=== PATIENT | female | born 1930 | race Caucasian/White ===

== ENCOUNTER 2016-09-12 19:37 | Emergency (ER) | payer MEDICARE, OTHER ==
[~2016-09-12] VITALS: Ht 162.6 cm; Wt 88.3 kg
[~2016-09-12 19:37] MED LIST: ACET-2723 PO; ANAS1TAB PO; ATEN-36 PO; CETI-115 PO; CITA10TA7 PO; CLIN300C86 PO; COLE1TAB2 PO; GABA-215 PO; INSU100I21 SQ; INSU100I3 SQ; LISI10TA7 PO; MECL-95 PO; SIMV40TA5 PO
[2016-09-12 19:40] VITALS: Ht 162.6 cm; Wt 88.3 kg
--- OUTSIDE RECORDS SUMMARY | 2016-09-12 19:41 | XMS REPORT | Continuity of Care Document ---
Author Author [facility] Organization [facility] Address Unknown Phone Unavailable Support Name Relationship Address Phone AQUILINO FUENTES MD Caregiver [address] [place] [address] [address] [place] [address] [phone] MARILYN ALAN MD Caregiver [address] [place] [address] KOKO DIAMOND Next Of Kin [address] [place], [place] [id number] Insurance Providers Payer Name Policy Number Subscriber Name Relationship Medicare [id number] Lilia Farrell 17 Self [place] [id number] Lilia Farrell 17 Self Advance Directives Directive Response Recorded Date/Time Dr Lyons Resuscitation Status Do Not Resuscitate 06/29/14 2:23pm Resuscitation Documents on File No 06/29/14 2:12pm Chief Complaint and Reason for Visit Chief Complaint CVA Reason for Visit Controlled diabetes mellitus Problems Medical Problems Problem Onset Date Status SIRS Unknown Active UTI Unknown Active DEHYDRATION Unknown Active Acute Renal Failure secondary to Dehydration Unknown Active Contusion of left knee Unknown Active Contusion of left knee Unknown Active Vertigo Unknown Active Vertigo Unknown Active Controlled diabetes mellitus Unknown Active Medications Medication Dose Route Sig Days/Qty Instructions Order Date Discontinued Date Status Aspirin 1 Tab PO DAILY 10/23/08 Active Atenolol 1 Tab PO TWICE A DAY 10/23/08 05/27/11 Discontinued Insulin Glargine 22 U SQ BEDTIME 10/23/08 Active Lisinopril 5 Mg PO BEDTIME 10/23/08 Active Hydrocodone Bit/Acetaminophen 1 Tab PO Q3H PRN 10/23/08 Active Lysine 1,000 Mg PO DAILY 10/23/08 Active Insulin Aspart 5 U SQ BEFORE EACH MEAL 10/23/08 Active Clopidogrel Bisulfate 1 Tab PO DAILY 10/23/08 02/19/10 Discontinued Omeprazole 1 Cap PO NEEDED 10/23/08 02/17/13 Discontinued Simvastatin 1 Tab PO BEDTIME 10/23/08 02/19/10 Discontinued Atenolol 25 Mg PO TWICE A DAY 01/24/13 Active Simvastatin 80 Mg PO BEDTIME 01/24/13 Active Gabapentin 2 Tab PO BEDTIME 01/24/13 Active Ascorbic Acid 1,000 Mg PO DAILY 01/24/13 Active Glucosa Berg 2KCL/Chondroitin Berg 1 Cap PO TWICE A DAY 01/24/13 Active [Cetericine] 10 Mg BEDTIME 01/24/13 02/17/13 Discontinued Nitroglycerin 0.4 Mg SL NEEDED 03/31/13 Active Loratadine 10 Mg PO BEDTIME 03/31/13 Active Cilostazol 100 Mg PO TWICE A DAY 03/31/13 Active [anastrozole] 1 Mg PO DAILY 01/16/14 Active Social History Social History Problem Response Recorded Date/Time Chewing Tobacco Status No 06/06/2013 1:38pm Hx Substance Use No 05/30/2014 1:23pm Hx Alcohol Use No 05/30/2014 1:23pm Has the pt used tobacco in the last 12 months No 06/29/2014 2:04pm Tobacco Usage none 01/17/2014 6:40am Query Response Start Date Stop Date Smoking Status Never smoker Hospital Discharge Instructions Instructions: Care Instructions: Reason for Hospitalization: induction of labor I was in the hospital because (patient own words): "i'm going to have a baby" Follow Up Appointments: Follow-up with Dr. Perea on August 29, 2014 at 10:30am. Condition at time of discharge: Good Jul [address] Ponce at [facility] office Patient Instructions: see discharge instructions Condition at time of discharge: Good Notify Physician If: any further stroke symptoms Condition at time of discharge: Good 7.2 Congenital Heart Disease Screening Result: Pass Plan of Care Discharge Date 07/21/14 10:15am Disposition 03 TO [facility] NOT [facility] ([facility]) Prescriptions See Medications Section Functional Status Query Response Date Recorded Physical Hygiene Self May 30, 2014 1:23pm Physical Hygiene Self May 30, 2014 1:23pm Allergies, Adverse Reactions, Alerts Allergen Type Severity Reaction Status Last Updated No Known Drug Allergies Allergy Unknown Active 05/30/14 Immunizations Name Given Type Hx Influenza Vaccination Y 04/04 Historical Hx Pneumococcal Vaccination Y WITHIN THE LAST 5 YEARS Historical Hx Tetanus, Diptheria, Pertussis No Historical Hx Influenza Vaccination Y 04/04 Historical Hx Tetanus Diptheria No Historical Hx Tetanus, Diptheria, Pertussis No Historical Hx Tetanus Toxoid Vaccination No Historical Vital Signs Acute Vital Signs Vital Response Date/Time Temperature (Fahrenheit) 97.0 deg F (96.8 - 99.1) Temperature (Calculated Celsius) 36.11177 degrees C (36.0 - 37.3) Temperature Source Temporal Pulse Rate (adult) 76 bpm (60 - 100) Respiratory Rate 16 breaths/min (10 - 20) Height 5 ft 5 in Weight 161 lb Body Mass Index 26.0 kg/m^2 Results Test Source Date Result Interp. Ref. Range Comments Alanine Aminotransferase (ALT/SGPT) July 21, 2014 4:55am 29 U/L N 9- 52 Albumin July 21, 2014 4:55am 3.3 G/DL L 3.5-5.0 Albumin/Globulin Ratio July 21, 2014 4:55am 1.1 RATIO N 1.1-2.2 Alkaline Phosphatase July 21, 2014 4:55am 58 U/L N 38-126 Anion Gap July 21, 2014 4:55am 9 MEQ/L N 5-15 Aspartate Amino Transf (AST/SGOT) July 21, 2014 4:55am 24 U/L N 14- 36 BUN/Creatinine Ratio July 21, 2014 4:55am 23 RATIO N 6-26 Band Neutrophils # June 30, 2014 7:13am 0.3 T/MM3 - OK TO DRAW AT 0700 WITH OTHER IRU PER RN Band Neutrophils % June 30, 2014 7:13am 2.0 % N 0-6 OK TO DRAW AT 0700 WITH OTHER IRU PER RN Basophils # (Auto) July 21, 2014 4:55am 0.0 T/MM3 N 0-0.2 Basophils (%) (Auto) July 21, 2014 4:55am 0.3 % N 0-2 Blood Urea Nitrogen July 21, 2014 4:55am 16.0 MG/DL N 7-17 Calcium Level July 21, 2014 4:55am 10.3 MG/DL H 8.4-10.2 Calculated Osmolality July 21, 2014 4:55am 269 MOSM/KG N 261-280 Carbon Dioxide Level July 21, 2014 4:55am 29 MEQ/L N 22-30 Chemistry Specimen Hemolysis July 21, 2014 4:55am < 15 0-25 0-25: No Hemolysis.26-70: Slight Hemolysis - can falsely elevate K and Urine Protein. 71-285: Moderate Hemolysis - can falsely elevate K, Troponin I, CA 19-9, PTH, CSF GLucose, and Urine Protein, and can falsely decrease Phenytoin. 286-999: Gross Hemolysis - can falsely elevate K, Troponin I, CA 19-9, PTH, CSF Glucose, and Urine Protine, and can falsely decrease Phenytoin. Recommend specimen recollection. Chloride Level July 21, 2014 4:55am 102 MEQ/L N 98-107 Creatinine July 21, 2014 4:55am 0.7 MG/DL N 0.7-1.2 Eosinophils # (Auto) July 21, 2014 4:55am 0.1 T/MM3 N 0-0.5 Eosinophils # (Manual) June 30, 2014 7:13am 0.3 T/MM3 N 0-0.5 OK TO DRAW AT 0700 WITH OTHER IRU PER RN Eosinophils % (Manual) June 30, 2014 7:13am 2.0 % N 0-4 OK TO DRAW AT 0700 WITH OTHER IRU PER RN Eosinophils (%) (Auto) July 21, 2014 4:55am 1.5 % N 0-4 Globulin July 21, 2014 4:55am 3.0 G/DL N 2.4-3.6 Glomerular Filtration Rate Calc July 21, 2014 4:55am 80 - Glucometer July 21, 2014 10:06am 109 mg/dL N 65-110 Glucose Level July 21, 2014 4:55am 87 MG/DL N 65-110 Hematocrit July 21, 2014 4:55am 38.1 % N 36-46 Hemoglobin July 21, 2014 4:55am 11.9 GM/DL L 12-16 Hemoglobin A1c July 14, 2014 5:07am 7.8 % H 6-7 <6.0 NON-DIABETIC RANGE6.0-7.0 ADA THERAPEUTIC RANGE >7.0 ACTION SUGGESTED Icterus Index July 21, 2014 4:55am < 2 0-7 Immature Granulocyte # (Auto) July 21, 2014 4:55am 0.03 T/MM3 N 0.00- 0.03 Immature Granulocyte % (Auto) July 21, 2014 4:55am 0.3 % N 0.0-0.5 Lab Scanned Report September 20, 2013 8:40pm LAB TEST FORM REQUEST [id number] - Lactate Dehydrogenase July 07, 2014 5:04am 573 U/L N 313-618 Lymphocytes # (Auto) July 21, 2014 4:55am 3.2 T/MM3 N 1-4.8 Lymphocytes # (Manual) July 07, 2014 5:04am 1.7 T/MM3 N 1-4.8 Lymphocytes % (Manual) July 07, 2014 5:04am 12.0 % L 23-45 Lymphocytes (%) (Auto) July 21, 2014 4:55am 34.5 % N 23-45 Mean Corpuscular Hemoglobin July 21, 2014 4:55am 28.9 UUG N 26-34 Mean Corpuscular Hemoglobin Concent July 21, 2014 4:55am 31.2 GM/DL N 31-37 Mean Corpuscular Volume July 21, 2014 4:55am 92.5 UM3 N 80-100 Mean Platelet Volume July 21, 2014 4:55am 11.9 UM3 N 9.4-12.4 Monocytes # (Auto) July 21, 2014 4:55am 0.6 T/MM3 N 0-0.8 Monocytes # (Manual) July 07, 2014 5:04am 0.6 T/MM3 N 0-0.8 Monocytes % (Manual) July 07, 2014 5:04am 4.0 % N 0-9.0 Monocytes (%) (Auto) July 21, 2014 4:55am 6.3 % N 0-9.0 TI-Mwo-K-Type Natriuretic Peptide February 19, 2013 4:45am 1360 PG/ML H 0- 175 Rule in cut points: <50 years old=450; 50-75 years old=900; >75 years old=1800; When utilizing ProBNP rule-in cut points, adjustment for impaired renal function is typically not required. Neutrophils # (Auto) July 21, 2014 4:55am 5.3 T/MM3 N 1.8-7.7 Neutrophils # (Manual) July 07, 2014 5:04am 11.8 T/MM3 H 1.8-7.7 Neutrophils % (Manual) July 07, 2014 5:04am 84.0 % H 33-66 Neutrophils (%) (Auto) July 21, 2014 4:55am 57.1 % N 33-66 Platelet Count July 21, 2014 4:55am 125 T/MM3 L 130-400 Potassium Level July 21, 2014 4:55am 4.2 MEQ/L N 3.6-5 Procalcitonin February 17, 2013 9:00pm < 0.05 NG/ML - PCT </=0.5 ng/mL - sepsis not likely;PCT >0.5 and </=2 ng/mL - sepsis possible; PCT >2 ng/mL - sepsis likely; PCT >/=10 ng/mL - systemic inflammatory response - sepsis or septic shock highly indicated. Prothromb Time International Ratio June 07, 2013 10:34am 0.96 N 0.86 -1.10 THERAPUTIC RANGE=2.00-3.00 FOR ANTI-THROMBOSIS THERAPUTIC RANGE=2.50- 3.50 FOR IMPLANTED VALVE RDW Standard Deviation July 21, 2014 4:55am 45.7 FL N 36.9-50.2 Red Blood Count July 21, 2014 4:55am 4.12 M/MM3 N 4.00-5.20 Sodium Level July 21, 2014 4:55am 140 MEQ/L N 134-144 Total Bilirubin July 21, 2014 4:55am 0.40 MG/DL N 0.20-1.30 Total Protein July 21, 2014 4:55am 6.3 G/DL N 6.3-8.2 Troponin I May 30, 2014 1:51pm < 0.012 ng/ml 0-0.12 Turbidity July 21, 2014 4:55am < 20 0-20 Urinalysis Comment May 30, 2014 2:13pm Microscopic not ind. - Has specimen been collected/obtained? Y Urine Bacteria June 30, 2014 8:30pm 2+ H - Has specimen been collected/obtained? Y Urine Bilirubin June 30, 2014 8:30pm Negative - Has specimen been collected/obtained? Y Urine Blood June 30, 2014 8:30pm Trace-intact H - Has specimen been collected/obtained? Y Urine Collection Type June 30, 2014 8:30pm Straight cath - Has specimen been collected/obtained? Y Urine Color June 30, 2014 8:30pm Yellow - Has specimen been collected/obtained? Y Urine Culture Indicated June 30, 2014 8:30pm Cult reflexed &setup - Has specimen been collected/obtained? Y Urine Glucose (UA) June 30, 2014 8:30pm 1+ H - Has specimen been collected/obtained? Y Urine Ketones June 30, 2014 8:30pm Negative - Has specimen been collected/obtained? Y Urine Leukocyte Esterase June 30, 2014 8:30pm 1+ H - Has specimen been collected/obtained? Y Urine Nitrite June 30, 2014 8:30pm Negative - Has specimen been collected/obtained? Y Urine Protein June 30, 2014 8:30pm Negative - Has specimen been collected/obtained? Y Urine RBC June 30, 2014 8:30pm 0-1 /HPF - Has specimen been collected/obtained? Y Urine Renal Epithelial Cells February 17, 2013 8:35pm 3-5 /HPF - Has specimen been collected/obtained? Y Urine Specific [place] June 30, 2014 8:30pm 1.010 L - Has specimen been collected/obtained? Y Urine Squamous Epithelial Cells September 20, 2013 12:00am 5-10 - Urine Turbidity June 30, 2014 8:30pm Clear - Has specimen been collected/obtained? Y Urine Urobilinogen June 30, 2014 8:30pm 0.2 EU/DL - Has specimen been collected/obtained? Y Urine WBC June 30, 2014 8:30pm 10-20 /HPF H - Has specimen been collected/obtained? Y Urine WBC Clumps October 23, 2008 12:02am Few - Has specimen been collected/obtained? Y Urine pH June 30, 2014 8:30pm 5.0 - Has specimen been collected/ obtained? Y Venous Blood Lactate February 17, 2013 9:00pm 1.0 MMOL/L N 0.6-2.2 White Blood Count July 21, 2014 4:55am 9.3 T/MM3 N 4.5-11.0 Blood Culture Blood February 17, 2013 8:55pm NO GROWTH AFTER 5 DAYS Urine Culture Urine, Straight Cath June 30, 2014 8:58pm Name: LILIA FARRELL Unit #: [id number] : 1930 Sex: F Loc / Svc: [facility] DOS: Signed Report #: [id number] DIAGNOSTIC IMAGING REPORT TYPE OF EXAM: CHEST, PA & LATERAL Dictated By: MONTIEL, FANNY D MD INDICATION: ITS.REASON: cough CHEST 2-VIEWS UPRIGHT (PA & LAT): COMPARISON: June 30, 2014 FINDINGS: The lungs are clear without evidence of focal abnormal airspace opacity. There is no pleural effusion or pneumothorax. Poststernotomy changes are present. The heart size, mediastinal contours and pulmonary vascularity are within normal limits. IMPRESSION: Stable chest without acute cardiopulmonary disease. . Procedures Procedure Status Date Provider(s) ROUTINE VENIPUNCTURE completed 05/30/14 CT HEAD/BRAIN W/O DYE completed 05/30/14 X-RAY EXAM OF PELVIS completed 05/30/14 X-RAY EXAM OF HUMERUS completed 05/30/14 X-RAY EXAM OF HIP completed 05/30/14 CT LOWER EXTREMITY W/O DYE completed 05/30/14 COMPREHEN METABOLIC PANEL completed 05/30/14 URINALYSIS AUTO W/O SCOPE completed 05/30/14 ASSAY OF TROPONIN QUANT completed 05/30/14 COMPLETE CBC W/AUTO DIFF WBC completed 05/30/14 URINE CULTURE/COLONY COUNT completed 05/30/14 ELECTROCARDIOGRAM TRACING completed 05/30/14 THER/PROPH/DIAG INJ IV PUSH completed 05/30/14 EMERGENCY DEPT VISIT completed 05/30/14 [id number] ITEM OR SERVICE completed 05/30/14 [id number]"INJECTION, ONDANSETRON HYDROCHLORIDE, PER 1 MG" completed 05/30/14 Encounters Encounter Location Date/Time Discharged Inpatient [facility] 06/29/14 12:20pm Departed Emergency Room [facility] 05/30/14 1:13pm Recent Diagnosis Controlled diabetes mellitus
--- OUTSIDE RECORDS SUMMARY | 2016-09-12 19:41 | XMS REPORT | Referral Summary ---
Author Organization Unknown Address Unknown Phone Unavailable Care Team Providers Care Fish Housekeeper Name Role Phone Onel Jaimes Primary Care Physician [phone] Encounter VC Date(s): 08/11/14 - 08/11/14 [address] [facility]ila, [place], [address] [place], [place] [address] Discharge Diagnosis: Attention to gastrostomy tube Discharge Disposition: Home or Self Care Attending Physician: Geo Mcmillan MD Admitting Physician: Geo Mcmillan MD Referring Physician: Anshu Jaimes MD Vital Signs Most recent to 1 oldest [Reference Range]: Temperature Tympanic 36.4 degC [36.6-38.1 degC] *LOW* (08/11/14 1:56 PM) Peripheral Pulse 66 bpm Rate [60-100 bpm] (08/11/14 1:56 PM) Blood Pressure 140/74 mmHg [90-140/60-90 mmHg] (08/11/14 1:56 PM) Problem List Condition Effective Dates Status Health Status Informant Stroke(Confirmed) Active Constipation(Confirm Active ed) Diabetes(Confirmed) Active Hypercholesteremia(C Active onfirmed) Hypertension(Confirm Active ed) Allergies, Adverse Reactions, Alerts No data available for this section Medications anastrozole 1 mg oral tablet 1 tabs, Oral, Daily, # 30 tabs, 0 Refill(s) Start Date: 08/10/14 Status: Ordered aspirin 325 mg, 0 Refill(s) Start Date: 08/10/14 Status: Ordered atenolol 25 mg oral tablet 1 tabs, Oral, Daily, # 30 tabs, 0 Refill(s) Start Date: 08/10/14 Status: Ordered CeleXA 10 mg oral tablet 1 tabs, Oral, Daily, # 30 tabs, 0 Refill(s) Start Date: 08/11/14 Status: Ordered Chondroitin-Glucosamine 1 caps, Oral, BID, 0 Refill(s) Start Date: 08/10/14 Status: Ordered cilostazol 100 mg oral tablet 1 tabs, Oral, BID, # 60 tabs, 0 Refill(s) Start Date: 08/10/14 Status: Ordered gabapentin 300 mg oral capsule 2 caps, Oral, Daily, 0 Refill(s) Start Date: 08/10/14 Status: Ordered Lantus 100 units/mL subcutaneous solution 22 units, SubCutaneous, Bedtime (once a day), # 10 mL, 0 Refill(s) Start Date: 08/10/14 Status: Ordered lisinopril 5 mg oral tablet 1 tabs, Oral, Daily, # 30 tabs, 0 Refill(s) Start Date: 08/10/14 Status: Ordered loratadine 10 mg oral tablet 1 tabs, Oral, Daily, # 30 tabs, 0 Refill(s) Start Date: 08/10/14 Status: Ordered lysine 500 mg oral tablet 2 tabs, Oral, Daily, # 100 tabs, 0 Refill(s) Start Date: 08/10/14 Status: Ordered nitroglycerin 0.4 mg sublingual tablet 1 tabs, SubLingual, q5min, as needed for chest pain, # 100 tabs, 0 Refill(s) Start Date: 08/10/14 Status: Ordered NovoLOG 100 units/mL subcutaneous solution 5 units, SubCutaneous, Once a Day (before meals), 0 Refill(s) Start Date: 08/10/14 Status: Ordered simvastatin 80 mg oral tablet 1 tabs, Oral, Bedtime (once a day), # 30 tabs, 0 Refill(s) Start Date: 08/10/14 Status: Ordered Vitamin C 1,000 mg, Daily, 0 Refill(s) Start Date: 08/10/14 Status: Ordered Vitamin C 1,000 mg, Daily, 0 Refill(s) Start Date: 08/11/14 Status: Ordered Zofran 4 mg oral tablet 1 tabs, Oral, Once, # 10 tabs, 0 Refill(s) Start Date: 08/11/14 Status: Ordered Results No data available for this section Immunizations No data available for this section Procedures Procedure Date Related Diagnosis Body Site Infection of percutaneous endoscopic 06/27/14 gastrostomy (PEG) site1 1in [place] Social History No data available for this section Assessment and Plan Extracted from: Title: Ambulatory Patient Education Author: Geo Mcmillan MD Date: Family Medicine Gastrostomy Tube, Adult A gastrostomy tube is a tube that is placed into the stomach. It is also called a "G-tube." This tube is used for: Feeding. Giving medication. CLEANING THE G-TUBE SITE Wash your hands with soap and water. Remove the old dressing (if any). Some styles of G-tubes may need a dressing inserted between the skin and the G-tube. Other types of G-tubes do not require a dressing. Ask your caregiver if a dressing is needed. Check the area where the tube enters the skin (insertion site ) for redness , swelling, or pus-like (purulent ) drainage. A small amount of clear or capellan liquid drainage is normal. Check to make sure scar tissue (skin) is not growing around the insertion site. This could have a raised, bumpy appearance. A cotton swab can be used to clean the skin around the tube: When the G-tube is first put in, a normal saline solution or water can be used to clean the skin. Mild soap and warm water can be used when the skin around the G-tube site has healed. Roll the cotton swab around the G-tube insertion site to remove any drainage or crusting at the insertion site. RESIDUALS Feeding tube residuals are the amount of liquids that are in the stomach at any given time. Residuals may be checked before giving feedings, medications, or as instructed by your caregiver. Ask your caregiver if there are instances when you would not start tube feedings depending on the amount or type of contents withdrawn from the stomach. Check residuals by attaching a syringe to the G-tube and pull back on the syringe plunger. Note the amount and return the residual back into the stomach. FLUSHING THE G-TUBE The G-tube should be periodically flushed with clean warm water to keep it from clogging. Flush the G-tube after feedings or medications. Draw up 30 mLs of warm water in a syringe. Connect the syringe to the G-tube and slowly push the water into the tube. Do not push feedings, medications, or flushes rapidly. Flush the G-tube gently and slowly. Only use syringes made for G-tubes to flush medications or feedings. Your caregiver may want the G-tube flushed more often or with more water. If this is the case, follow your caregiver's instructions. FEEDINGS Your caregiver will determine whether feedings are given as a bolus (a certain amount given at one time and at scheduled times) or whether feedings will be given continuously on a feeding pump. Formulas should be given at room temperature. If feedings are continuous, no more than 4 hours worth of feedings should be placed in the feeding bag. This helps prevent spoilage or accidental excess infusion. Cover and place unused formula in the refrigerator. If feedings are continuous, stop the feedings when medications or flushes are given. Be sure to restart the feedings. Feeding bags and syringes should be replaced as instructed by your caregiver. GIVING MEDICATION In general, it is best if all medications are in a liquid form for G-tube administration. Liquid medications are less likely to clog the G-tube. Mix the liquid medication with 30 mLs (or amount recommended by your caregiver) of warm water. Draw up the medication into the syringe. Attach the syringe to the G-tube and slowly push the mixture into the G- tube. After giving the medication, draw up 30 mLs of warm water in the syringe and slowly flush the G-tube. For pills or capsules, check with your caregiver first before crushing medications. Some pills are not effective if they are crushed. Some capsules are sustained release medications. If appropriate, crush the pill or capsule and mix with 30 mLs of warm water. Using the syringe, slowly push the medication through the tube, then flush the tube with another 30 mLs of tap water. G-TUBE PROBLEMS G-tube was pulled out. Cause: May have been pulled out accidentally. Solutions: Cover the opening with clean dressing and tape. Call your caregiver right away. The G-tube should be put in as soon as possible (within 4 hours) so the G-tube opening (tract ) does not close. The G-tube needs to be put in at a healthcare setting. An X-ray needs to be done to confirm placement before the G-tube can be used again. Redness, irritation, soreness, or foul odor around the gastrostomy site. Cause: May be caused by leakage or infection. Solutions: Call your caregiver right away. Large amount of leakage of fluid or mucus-like liquid present (a large amount means it soaks clothing). Cause: Many reasons could cause the G-tube to leak. Solutions: Call your caregiver to discuss the amount of leakage. Skin or scar tissue appears to be growing where tube enters skin. Cause: Tissue growth may develop around the insertion site if the G-tube is moved or pulled on excessively. Solutions: Secure tube with tape so that excess movement does not occur. Call your caregiver. G-tube is clogged. Cause: Thick formula or medication. Solutions: Try to slowly push warm water into the tube with a large syringe. Never try to push any object into the tube to unclog it. Do not force fluid into the G-tube. If you are unable to unclog the tube, call your caregiver right away. TIPS Head of Bed (HOB) position refers to the upright position of a person's upper body. When giving medications or a feeding bolus, keep the HOB up as told by your caregiver. Do this during the feeding and for 1 hour after the feeding or medication administration. If continuous feedings are being given, it is best to keep the HOB up as told by your caregiver. When ADLs (Activities of Daily Living) are performed and the HOB needs to be flat, be sure to turn the feeding pump off. Restart the feeding pump when the HOB is returned to the recommended height. Do not pull or put tension on the tube. To prevent fluid backflow, kink the G-tube before removing the cap or disconnecting a syringe. Check the G-tube length every day. Measure from the insertion site to the end of the G-tube. If the length is longer than previous measurements, the tube may be coming out. Call your caregiver if you notice increasing G-tube length. Oral care, such as brushing teeth, must be continued. You may need to remove excess air (vent ) from the G-tube. Your caregiver will tell you if this is needed. Always call your caregiver if you have questions or problems with the G- tube. SEEK IMMEDIATE MEDICAL CARE IF: You have severe abdominal pain, tenderness, or abdominal bloating ( distension ). You have nausea or vomiting. You are constipated or have problems moving your bowels. The G-tube insertion site is red, swollen, has a foul smell, or has yellow or brown drainage. You have difficulty breathing or shortness of breath. You have a fever. You have a large amount of feeding tube residuals. The G-tube is clogged and cannot be flushed. MAKE SURE YOU: Understand these instructions. Will watch your condition. Will get help right away if you are not doing well or get worse. Document Released: 08/17/2002 Document Revised: 08/30/2012 Document Reviewed: [facility] Patient Information 2014 [facility], [facility]. No follow up information was provided.
--- OUTSIDE RECORDS SUMMARY | 2016-09-12 19:41 | XMS REPORT | Continuity of Care Document ---
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6 g/dL 32.0-37.0 MEAN CELL VOLUME 91.0 fl 80.0-100.0 RED BLOOD CELL 4.34 m/cumm 4.00-6.00 RED CELL DISTRIBUTION WIDTH 12.7 % 11.0- 15.6 WHITE BLOOD CELL 9.3 k/cumm 5.0-10.0 HEMOGLOBIN 12.5 gm/dL 12.0-16.0 HEMATOCRIT 39.5 % 37.0-47.0 PLATELET COUNT 189 k/cumm 150-400 METABOLIC PANEL, BASIC - 09/07/12 13:40 POTASSIUM 4.1 mmol/L 3.5-5.3 EST GFR (MDRD) > 60 mL/min > 59 ANION GAP 8 mmol/L 5-15 GLUCOSE 204 mg/dL 70-99 CALCIUM 9.4 mg/dL 8.5-10.1 BLOOD UREA NITROGEN 13 mg/dL 7-20 CREATININE 0.9 mg/dL 0.6-1.0 SODIUM 139 mmol/L 135-148 CHLORIDE 107 mmol/L 98-110 CARBON DIOXIDE 24 mmol/L 21-32 GLUCOSE (POC) - 09/13/12 06:03 GLUCOSE (POC) 112 mg/dL 70-99 GLUCOSE (POC) - 09/13/12 15:10 GLUCOSE (POC) 188 mg/dL 70-99 CREATININE - 09/13/12 17:23 EST GFR (MDRD) > 60 mL/min > 59 CREATININE 0.9 mg/dL 0.6-1.0 GLUCOSE (POC) - 09/13/12 18:07 GLUCOSE (POC) 173 mg/dL 70-99 Encounters ACCT No. Visit Date/Time Discharge Status Pt. Type Provider Facility Loc./Unit Complaint [id number] 08/25/2012 10:48:00 2012 23:59:59 CLS Outpatient Rox BAXTER, Oniel Flaherty [facility]
--- OUTSIDE RECORDS SUMMARY | 2016-09-12 19:42 | XMS REPORT | Continuity of Care Document ---
Author Author [facility] Organization [facility] Address Unknown Phone Unavailable Support Name Relationship Address Phone AQUILINO FUENTES MD Caregiver [address] [place] [phone] ROBERT ALFREDO MD Caregiver [address] [facility] [phone] SCOUT [employer] Next Of Kin [address] [place], [place] [id number] Insurance Providers Payer Name Policy Number Subscriber Name Relationship Medicare [id number] Lilia Farrell 18 Self [place] [employer] [place] [id number] Lilia Farrell 17 Self Advance Directives Directive Response Recorded Date/Time Advanced Directives Type DPOA for Healthcare 01/16/14 3:51pm Problems Medical Problems Problem Onset Date Status SIRS Unknown Active UTI Unknown Active DEHYDRATION Unknown Active Acute Renal Failure secondary to Dehydration Unknown Active Contusion of left knee Unknown Active Medications Medication Dose Route Sig Days/Qty Instructions Order Date Discontinued Date Status Aspirin 1 Tab PO DAILY 10/23/08 Active Atenolol 1 Tab PO TWICE A DAY 10/23/08 05/27/11 Discontinued Insulin Glargine 22 U SQ BEDTIME 10/23/08 Active Lisinopril 5 Mg PO BEDTIME 10/23/08 Active Hydrocodone Bit/Acetaminophen 1 Tab PO Q3H PRN 10/23/08 Active Lysine 1,000 Mg PO TWICE A DAY 10/23/08 Active Insulin Aspart 5 U SQ BEFORE EACH MEAL 10/23/08 Active Clopidogrel Bisulfate 1 Tab PO DAILY 10/23/08 02/19/10 Discontinued Omeprazole 1 Cap PO NEEDED 10/23/08 02/17/13 Discontinued Simvastatin 1 Tab PO BEDTIME 10/23/08 02/19/10 Discontinued Atenolol 25 Mg PO THREE TIMES A DAY 01/24/13 Active Simvastatin 80 Mg PO BEDTIME 01/24/13 Active Gabapentin 300 Mg PO TWICE A DAY 01/24/13 Active Ascorbic Acid 1,000 Mg PO DAILY 01/24/13 Active Glucosa Berg 2KCL/Chondroitin Berg 1 Cap PO TWICE A DAY 01/24/13 Active [Cetericine] 10 Mg BEDTIME 01/24/13 02/17/13 Discontinued Nitroglycerin 0.4 Mg SL NEEDED 03/31/13 Active Loratadine 10 Mg PO BEDTIME 03/31/13 Active Cilostazol 100 Mg PO TWICE A DAY 03/31/13 Active Cholecalciferol (Vitamin D3) 2,000 Unit PO DAILY 06/06/13 Active [anastrozole] 1 Mg PO DAILY 01/16/14 Active Social History Social History Problem Response Recorded Date/Time Smoking Status Never smoker 01/16/2014 3:51pm Chewing Tobacco Status No 06/06/2013 1:38pm Hx Substance Use No 01/16/2014 3:51pm Hx Alcohol Use No 01/16/2014 3:51pm Has the pt used tobacco in the last 12 months No 06/06/2013 1:38pm Query Response Start Date Stop Date Smoking Status Never smoker Hospital Discharge Instructions No hospital discharge instructions. Plan of Care No plan of care. Functional Status Query Response Date Recorded Physical Hygiene Self January 16, 2014 3:51pm Disabilities Hearing Visual January 16, 2014 3:51pm Devices Used Dentures Glasses Walker January 16, 2014 3:51pm Dressing Self January 16, 2014 3:51pm Ambulation Self January 16, 2014 3:51pm Diet Self January 16, 2014 3:51pm Mental Status Alert January 16, 2014 3:51pm Disabilities Hearing Visual January 16, 2014 3:51pm Devices Used Dentures Glasses Walker January 16, 2014 3:51pm Physical Hygiene Self January 16, 2014 3:51pm Dressing Self January 16, 2014 3:51pm Ambulation Self January 16, 2014 3:51pm Diet Self January 16, 2014 3:51pm Allergies, Adverse Reactions, Alerts Allergen Type Severity Reaction Status Last Updated No Known Drug Allergies Allergy Unknown Active 03/31/13 Immunizations Name Given Type Hx Influenza Vaccination Y 06/2013 Historical Hx Pneumococcal Vaccination No Historical Hx Tetanus, Diptheria, Pertussis No Historical Hx Influenza Vaccination Y 06/2013 Historical Hx Tetanus Diptheria No Historical Hx Tetanus, Diptheria, Pertussis No Historical Hx Tetanus Toxoid Vaccination No Historical Vital Signs Acute Vital Signs Vital Response Date/Time Temperature (Fahrenheit) 98.0 deg F (96.8 - 99.1) Temperature (Calculated Celsius) 36.65467 degrees C (36.0 - 37.3) Pulse Rate (adult) 80 bpm (60 - 100) Respiratory Rate 18 breaths/min (10 - 20) O2 Sat by Pulse Oximetry 97 % (90 - 100) Blood Pressure 143/66 mm Hg Height 5 ft 4 in Weight 199 lb Body Mass Index 34.0 kg/m^2 Results Test Source Date Result Interp. Ref. Range Comments Alanine Aminotransferase (ALT/SGPT) June 07, 2013 10:34am 17 U/L N 9 -52 Albumin June 07, 2013 10:34am 4.3 G/DL N 3.5-5.0 Albumin/Globulin Ratio June 07, 2013 10:34am 1.2 RATIO N 1.1-2.2 Alkaline Phosphatase June 07, 2013 10:34am 38 U/L N 38-126 Anion Gap June 07, 2013 10:34am 16 MEQ/L H 5-15 Aspartate Amino Transf (AST/SGOT) June 07, 2013 10:34am 22 U/L N 14- 36 BUN/Creatinine Ratio June 07, 2013 10:34am 41 RATIO H 6-26 Basophils # (Auto) June 07, 2013 10:34am 0.1 T/MM3 N 0-0.2 COMMENT SCU WILL CALL Basophils (%) (Auto) June 07, 2013 10:34am 0.6 % N 0-2 COMMENT SCU WILL CALL Blood Urea Nitrogen June 07, 2013 10:34am 29.0 MG/DL H 7-17 Calcium Level June 07, 2013 10:34am 10.5 MG/DL H 8.4-10.2 Calculated Osmolality June 07, 2013 10:34am 288 MOSM/KG H 261-280 Carbon Dioxide Level June 07, 2013 10:34am 20 MEQ/L L 22-30 Chloride Level June 07, 2013 10:34am 109 MEQ/L H 98-107 Creatinine June 07, 2013 10:34am 0.7 MG/DL N 0.7-1.2 Eosinophils # (Auto) June 07, 2013 10:34am 0.3 T/MM3 N 0-0.5 COMMENT SCU WILL CALL Eosinophils (%) (Auto) June 07, 2013 10:34am 3.5 % N 0-4 COMMENT SCU WILL CALL Globulin June 07, 2013 10:34am 3.5 G/DL N 2.4-3.6 Glucose Level June 07, 2013 10:34am 152 MG/DL H 65-110 Hematocrit June 07, 2013 10:34am 42.2 % N 36-46 COMMENT SCU WILL CALL Hemoglobin June 07, 2013 10:34am 13.4 GM/DL N 12-16 COMMENT SCU WILL CALL Lymphocytes # (Auto) June 07, 2013 10:34am 2.3 T/MM3 N 1-4.8 COMMENT SCU WILL CALL Lymphocytes (%) (Auto) June 07, 2013 10:34am 25.9 % N 23-45 COMMENT SCU WILL CALL Mean Corpuscular Hemoglobin June 07, 2013 10:34am 29.2 UUG N 26-34 COMMENT SCU WILL CALL Mean Corpuscular Hemoglobin Concent June 07, 2013 10:34am 31.8 GM/DL N 31-37 COMMENT SCU WILL CALL Mean Corpuscular Volume June 07, 2013 10:34am 91.9 UM3 N 80-100 COMMENT SCU WILL CALL Mean Platelet Volume June 07, 2013 10:34am 12.6 UM3 H 9.4-12.4 COMMENT SCU WILL CALL Monocytes # (Auto) June 07, 2013 10:34am 0.6 T/MM3 N 0-0.8 COMMENT SCU WILL CALL Monocytes (%) (Auto) June 07, 2013 10:34am 7.1 % N 0-9.0 COMMENT SCU WILL CALL Neutrophils # (Auto) June 07, 2013 10:34am 5.7 T/MM3 N 1.8-7.7 COMMENT SCU WILL CALL Neutrophils (%) (Auto) June 07, 2013 10:34am 62.8 % N 33-66 COMMENT SCU WILL CALL Platelet Count June 07, 2013 10:34am 179 T/MM3 N 130-400 COMMENT SCU WILL CALL Potassium Level June 07, 2013 10:34am 5.4 MEQ/L H 3.6-5 Prothromb Time International Ratio June 07, 2013 10:34am 0.96 N 0.86 -1.10 THERAPUTIC RANGE=2.00-3.00 FOR ANTI-THROMBOSIS THERAPUTIC RANGE=2.50- 3.50 FOR IMPLANTED VALVE RDW Standard Deviation June 07, 2013 10:34am 40.9 FL N 36.9-50.2 COMMENT SCU WILL CALL Red Blood Count June 07, 2013 10:34am 4.59 M/MM3 N 4.00-5.20 COMMENT SCU WILL CALL Sodium Level June 07, 2013 10:34am 145 MEQ/L H 134-144 Total Bilirubin June 07, 2013 10:34am 0.30 MG/DL N 0.20-1.30 Total Protein June 07, 2013 10:34am 7.8 G/DL N 6.3-8.2 Troponin I February 20, 2013 5:00am 0.027 ng/ml N 0-0.12 Urine Bacteria September 20, 2013 12:00am Trace H - Urine Bilirubin September 20, 2013 12:00am Negative - Urine Blood September 20, 2013 12:00am Negative - Urine Collection Type September 20, 2013 12:00am Voided-not cc-midstr - Urine Color September 20, 2013 12:00am Yellow - Urine Culture Indicated February 22, 2013 9:50am Cult reflexed &setup - COMMENT DC [place] AFTER UA OBTAINEDHas specimen been collected/obtained? Y Urine Glucose (UA) September 20, 2013 12:00am Negative - Urine Ketones September 20, 2013 12:00am Negative - Urine Leukocyte Esterase September 20, 2013 12:00am Negative - Urine Nitrite September 20, 2013 12:00am Negative - Urine Protein September 20, 2013 12:00am Negative - Urine RBC September 20, 2013 12:00am 0-1 /HPF - Urine Renal Epithelial Cells February 17, 2013 8:35pm 3-5 /HPF - Has specimen been collected/obtained? Y Urine Specific [place] September 20, 2013 12:00am 1.025 - Urine Squamous Epithelial Cells September 20, 2013 12:00am 5-10 - Urine Turbidity September 20, 2013 12:00am Clear - Urine Urobilinogen September 20, 2013 12:00am 0.2 EU/DL - Urine WBC September 20, 2013 12:00am 3-5 /HPF - Urine WBC Clumps October 23, 2008 12:02am Few - Has specimen been collected/obtained? Y Urine pH September 20, 2013 12:00am 5.5 - White Blood Count June 07, 2013 10:34am 9.0 T/MM3 N 4.5-11.0 COMMENT SCU WILL CALL Glucometer February 22, 2013 1:55pm 141 mg/dL H 65-110 Lab Scanned Report September 20, 2013 8:40pm LAB TEST FORM REQUEST [id number] - Glomerular Filtration Rate Calc June 07, 2013 10:34am 80 - Immature Granulocyte # (Auto) June 07, 2013 10:34am 0.01 T/MM3 N 0.00-0.03 COMMENT SCU WILL CALL Immature Granulocyte % (Auto) June 07, 2013 10:34am 0.1 % N 0.0-0.5 COMMENT SCU WILL CALL Venous Blood Lactate February 17, 2013 9:00pm 1.0 MMOL/L N 0.6-2.2 Procalcitonin February 17, 2013 9:00pm < 0.05 NG/ML - PCT </=0.5 ng/mL - sepsis not likely;PCT >0.5 and </=2 ng/mL - sepsis possible; PCT >2 ng/mL - sepsis likely; PCT >/=10 ng/mL - systemic inflammatory response - sepsis or septic shock highly indicated. CB-Rbm-I-Type Natriuretic Peptide February 19, 2013 4:45am 1360 PG/ML H 0- 175 Rule in cut points: <50 years old=450; 50-75 years old=900; >75 years old=1800; When utilizing ProBNP rule-in cut points, adjustment for impaired renal function is typically not required. Blood Culture Blood February 17, 2013 8:55pm NO GROWTH AFTER 5 DAYS Urine Culture Urine, [place] Indwelling February 22, 2013 10:41am Name: LILIA FARRLEL Unit #: [id number] : 1930 Sex: F Loc / Svc: ED DOS: 01/16/14 Signed Report #: [id number] DIAGNOSTIC IMAGING REPORT TYPE OF EXAM: KNEE LEFT 3 VIEWS Dictated By: FANNY MONTIEL MD Indication: ITS.REASON: fall left knee pain Comparison: None Findings: There is no acute fracture, dislocation or malalignment identified. 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 Arterial vascular calcifications. Impression: No acute osseous abnormality. . Procedures No known history of procedures. Encounters Encounter Location Date/Time Departed Emergency Room [facility] 01/16/14 3:37pm Recent Diagnosis
--- OUTSIDE RECORDS SUMMARY | 2016-09-12 19:42 | XMS REPORT | Continuity of Care Document ---
Author Author [facility] Organization [facility] Address Unknown Phone Unavailable Support Name Relationship Address Phone KAYLEEJACK GARCIA Caregiver [facility] [address] [place] [address] AQUILINO FUNETES MD Caregiver [address] [place] [address] [place] [phone] [place]O ([place]) Next Of Kin [address] [place] [id number] Insurance Providers Payer Name Policy Number Subscriber Name Relationship Medicare [id number] Lilia Farrell 18 Self [place] [employer] [place] [id number] Lilia Farrell 18 Self Advance Directives Directive Response Recorded Date/Time Advanced Directives Type Living Will DPOA for Healthcare 09/17/14 4:44pm Problems Medical Problems Problem Onset Date Status SIRS Unknown Active UTI Unknown Active DEHYDRATION Unknown Active Acute Renal Failure secondary to Dehydration Unknown Active Contusion of left knee Unknown Active Contusion of left knee Unknown Active Vertigo Unknown Active Vertigo Unknown Active Controlled diabetes mellitus Unknown Active Generalized weakness Unknown Active Medications Medication Dose Route Sig Days/Qty Instructions Order Date Discontinued Date Status Aspirin 1 Tab PO DAILY 10/23/08 09/17/14 Discontinued Atenolol 1 Tab PO TWICE A DAY 10/23/08 05/27/11 Discontinued Insulin Glargine 22 U SQ BEDTIME 10/23/08 Active Lisinopril 10 Mg PO BEDTIME 10/23/08 Active Hydrocodone Bit/Acetaminophen 1 Tab PO Q3H PRN 10/23/08 09/17/14 Discontinued Lysine 1,000 Mg PO DAILY 10/23/08 09/17/14 Discontinued Insulin Aspart 8 U SQ BEFORE EACH MEAL 10/23/08 Active Clopidogrel Bisulfate 1 Tab PO DAILY 10/23/08 02/19/10 Discontinued Omeprazole 1 Cap PO NEEDED 10/23/08 02/17/13 Discontinued Simvastatin 1 Tab PO BEDTIME 10/23/08 02/19/10 Discontinued Atenolol 25 Mg PO TWICE A DAY 01/24/13 Active Simvastatin 80 Mg PO BEDTIME 01/24/13 Active Gabapentin 1 Tab PO THREE TIMES A DAY 01/24/13 Active Ascorbic Acid 1,000 Mg PO DAILY 01/24/13 09/17/14 Discontinued Glucosa Berg 2KCL/Chondroitin Berg 1 Cap PO TWICE A DAY 01/24/13 Discontinued [Cetericine] 10 Mg BEDTIME 01/24/13 02/17/13 Discontinued Nitroglycerin 0.4 Mg SL NEEDED 03/31/13 Active Loratadine 10 Mg PO BEDTIME 03/31/13 Active Cilostazol 100 Mg PO TWICE A DAY 03/31/13 09/17/14 Discontinued [anastrozole] 1 Mg PO DAILY 01/16/14 Active Citalopram Hydrobromide 1 Tab PO DAILY 09/17/14 Active Acetaminophen 2 Tab PO BEDTIME PRN PAIN 09/17/14 Active Social History Social History Problem Response Recorded Date/Time Chewing Tobacco Status No 06/06/2013 1:38pm Hx Substance Use No 09/17/2014 5:33pm Hx Alcohol Use No 09/17/2014 5:33pm Has the pt used tobacco in the last 12 months No 06/29/2014 2:04pm Tobacco Usage none 01/17/2014 6:40am Query Response Start Date Stop Date Smoking Status Never smoker Hospital Discharge Instructions Instructions: Care Instructions: Reason for Hospitalization: colitis I was in the hospital because (patient own words): "NAUSEA, VOMITING, CRAMPING" Discharge Diet: soft as tolerated Discharge Activity: as tolerated Follow Up Appointments: see Dr Melo in 1 week for hospital followup Patient Instructions: orders have been left at the infusion center for PRN IVF and antiemetics. Should you have further problems you could utilize these orders. If your symptoms re-develop you should call Dr Melo or return to the ED for emergent evaluation. Condition at time of discharge: Good PUMP CHECK BLOOD SUGARS BEFORE MEALS AND AT BEDTIME. CALL DR. MARTINEZ FOR SUGARS GREATER THAN 300. Condition at time of discharge: Good Bilirubin Level: 6.1 Congenital Heart Disease Screening Result: Pass Plan of Care Discharge Date 07/21/14 10:15am Prescriptions See Medications Section Functional Status Query Response Date Recorded Physical Hygiene Assist September 17, 2014 5:33pm Disabilities Hearing Visual September 17, 2014 5:33pm Devices Used Dentures Glasses Walker September 17, 2014 5:33pm Dressing Assist September 17, 2014 5:33pm Ambulation Assist September 17, 2014 5:33pm Diet Assist September 17, 2014 5:33pm Mental Status Alert Oriented September 17, 2014 5:59pm Disabilities Hearing Visual September 17, 2014 5:33pm Devices Used Dentures Glasses Walker September 17, 2014 5:33pm Physical Hygiene Assist September 17, 2014 5:33pm Dressing Assist September 17, 2014 5:33pm Ambulation Assist September 17, 2014 5:33pm Diet Assist September 17, 2014 5:33pm Allergies, Adverse Reactions, Alerts Allergen Type Severity Reaction Status Last Updated No Known Drug Allergies Allergy Unknown Active 09/17/14 Immunizations Name Given Type Hx Influenza Vaccination Y 04/04 Historical Hx Pneumococcal Vaccination Y WITHIN THE LAST 5 YEARS Historical Hx Tetanus, Diptheria, Pertussis No Historical Hx Influenza Vaccination Y 04/04 Historical Hx Tetanus Diptheria No Historical Hx Tetanus, Diptheria, Pertussis No Historical Hx Tetanus Toxoid Vaccination No Historical Vital Signs Acute Vital Signs Vital Response Date/Time Temperature (Fahrenheit) 98 deg F (96.8 - 99.1) Temperature (Calculated Celsius) 36.6696 degrees C (36.0 - 37.3) Pulse Rate (adult) 71 bpm (60 - 100) Respiratory Rate 18 breaths/min (10 - 20) O2 Sat by Pulse Oximetry 95 % (90 - 100) Blood Pressure 122/66 mm Hg Height 5 ft 5 in Weight 163 lb Body Mass Index 27.0 kg/m^2 Results Test Source Date Result Interp. [...] 4:55am 11.9 GM/DL L 12-16 Hemoglobin A1c August 01, 2014 5:53am 7.2 % H 6-7 <6.0 NON-DIABETIC RANGE6.0-7.0 ADA THERAPEUTIC RANGE >7.0 ACTION SUGGESTED Icterus Index July 21, 2014 4:55am < 2 0-7 Immature Granulocyte # (Auto) July 21, 2014 4:55am 0.03 T/MM3 N 0.00- 0.03 Immature Granulocyte % (Auto) July 21, 2014 4:55am 0.3 % N 0.0-0.5 Lab Scanned Report August 21, 2014 6:28pm LAB TEST FORM REQUEST - Lactate Dehydrogenase July 07, 2014 5:04am [...] 21, 2014 4:55am 6.3 % N 0-9.0 OH-Wge-Z-Type Natriuretic Peptide February 19, 2013 4:45am 1360 [...] 2014 4:55am < 20 0-20 Urinalysis Comment September 17, 2014 5:25pm Microscopic not ind. - Has specimen been collected/obtained? Y Urine Bacteria August 21, 2014 1:15pm 2+ H - Urine Bilirubin September 17, 2014 5:25pm Negative - Has specimen been collected/obtained? Y Urine Blood September 17, 2014 5:25pm Negative - Has specimen been collected/obtained? Y Urine Collection Type September 17, 2014 5:25pm Straight cath - Has specimen been collected/obtained? Y Urine Color September 17, 2014 5:25pm Yellow - Has specimen been collected/obtained? Y Urine Culture Indicated June 30, 2014 8:30pm Cult reflexed &setup - Has specimen been collected/obtained? Y Urine Glucose (UA) September 17, 2014 5:25pm Negative - Has specimen been collected/obtained? Y Urine Hyaline Casts August 21, 2014 1:15pm 0-1 /LPF - Urine Ketones September 17, 2014 5:25pm Negative - Has specimen been collected/obtained? Y Urine Leukocyte Esterase September 17, 2014 5:25pm Negative - Has specimen been collected/obtained? Y Urine Mucus August 21, 2014 1:15pm Present - Urine Nitrite September 17, 2014 5:25pm Negative - Has specimen been collected/obtained? Y Urine Protein September 17, 2014 5:25pm Negative - Has specimen been collected/obtained? Y Urine RBC August 21, 2014 1:15pm None seen /HPF - Urine Renal Epithelial Cells February 17, 2013 8:35pm 3-5 /HPF - Has specimen been collected/obtained? Y Urine Specific [place] September 17, 2014 5:25pm 1.010 L - Has specimen been collected/obtained? Y Urine Squamous Epithelial Cells August 21, 2014 1:15pm 0-5 - Urine Turbidity September 17, 2014 5:25pm Clear - Has specimen been collected/obtained? Y Urine Urobilinogen September 17, 2014 5:25pm 0.2 EU/DL - Has specimen been collected/obtained? Y Urine WBC August 21, 2014 1:15pm 1-3 /HPF - Urine WBC Clumps October 23, 2008 12:02am Few - Has specimen been collected/obtained? Y Urine White Blood Cell Casts August 21, 2014 1:15pm 0-1 /LPF - Urine pH September 17, 2014 5:25pm 6.0 - Has specimen been collected/ obtained? Y Venous Blood Lactate February 17, 2013 9:00pm 1.0 MMOL/L N 0.6-2.2 White Blood Count July 21, 2014 4:55am 9.3 T/MM3 N 4.5-11.0 Blood Culture Blood February 17, 2013 8:55pm NO GROWTH AFTER 5 DAYS Urine Culture Urine, Straight Cath August 21, 2014 1:15pm Enterococ Faecalis - (Group D) Name: LILIA FARRELL Unit #: [id number] : [id number] Sex: F Loc / Svc: PRIMO DOS: 08/24/14 Signed Report #: [id number] DIAGNOSTIC IMAGING REPORT TYPE OF EXAM: MODIFIED [facility]. SWALLOW STUDY Dictated By: MAHAD JUARES MD [facility]. SWALLOW STUDY: Videofluoroscopy was performed in conjunction with a customer development representative from speech pathology and a separate report and recommendations will be provided. Varying gradations of barium from thin to solid were administered. Trace amount of penetration was noted with thin consistency barium. There was no aspiration noted with any of the consistencies. On the AP view the bolus showed no obvious preference for either side. Surgical clips are noted near the thoracic inlet. Impression: Trace amount of penetration with thin consistency barium. No aspiration seen. Please see the speech pathology report for additional details and recommendations. Oleg Zambrano RPA/ performed this under my direct supervision. . Procedures Procedure Status Date Provider(s) PT EVALUATION completed 06/29/14 DAYANNA,MARILYN Dave MD GAIT TRAINING THERAPY completed 06/29/14 DAYANNA,MARILYN Dave MD PHYSICAL MEDICINE PROCEDURE completed 06/29/14 DAYANNA,MARILYN Dave MD OT EVALUATION completed 06/29/14 DAYANNA,MARILYN Dave MD SPEECH/HEARING THERAPY completed 06/29/14 NG,MARILYN Dave MD CINE/VID X-RAY THROAT/ESOPH completed 08/24/14 MOTION FLUOROSCOPY/SWALLOW completed 08/24/14 ST SWALLOW CURRENT STATUS completed 08/24/14 ST SWALLOW GOAL STATUS completed 08/24/14 ST SWALLOW DISCHARGE STATUS completed 08/24/14 Encounters Encounter Location Date/Time Departed Emergency Room [facility] 09/17/14 4:41pm Registered Clinic [facility] 08/24/14 9:20am Discharged Inpatient [facility] 06/29/14 12:20pm Recent Diagnosis
--- OUTSIDE RECORDS SUMMARY | 2016-09-12 19:42 | XMS REPORT | Continuity of Care Document ---
Author Author [facility] Organization [facility] Address Unknown Phone Unavailable Support Name Relationship Address Phone ERICA PAT MD Caregiver [address] [place] [phone] AQUILINO FUENTES MD Caregiver [address] [place] [phone] [employer] Next Of Kin [address] [place], [place] [id number] Insurance Providers Payer Name Policy Number Subscriber Name Relationship Medicare [id number] Lilia Farrell 18 Self [place] [id number] Lilia Farrell 18 Self Advance Directives Directive Response Recorded Date/Time Advanced Directives Type DPOA for Healthcare 05/30/14 1:13pm Problems Medical Problems Problem Onset Date Status SIRS Unknown Active UTI Unknown Active DEHYDRATION Unknown Active Acute Renal Failure secondary to Dehydration Unknown Active Contusion of left knee Unknown Active Contusion of left knee Unknown Active Vertigo Unknown Active Vertigo Unknown Active Medications Medication Dose Route Sig [...] the last 12 months No 06/06/2013 1:38pm Tobacco Usage none 01/17/2014 6:40am Query Response Start Date Stop Date Smoking Status Never smoker Hospital Discharge Instructions No hospital discharge instructions. Plan of Care No plan of care. Functional Status Query Response Date Recorded Physical Hygiene Self May 30, 2014 1:23pm Disabilities Hearing May 30, 2014 1:23pm Devices Used Walker May 30, 2014 1:23pm Dressing Self May 30, 2014 1:23pm Ambulation Self May 30, 2014 1:23pm Diet Self May 30, 2014 1:23pm Mental Status Alert Oriented May 30, 2014 1:23pm Disabilities Hearing May 30, 2014 1:23pm Devices Used Walker May 30, 2014 1:23pm Physical Hygiene Self May 30, 2014 1:23pm Dressing Self May 30, 2014 1:23pm Ambulation Self May 30, 2014 1:23pm Diet Self May 30, 2014 1:23pm Allergies, Adverse Reactions, Alerts Allergen Type Severity Reaction Status Last Updated No Known Drug Allergies Allergy Unknown Active 05/30/14 Immunizations Name Given Type Hx Influenza Vaccination Y 04/04 Historical Hx Pneumococcal Vaccination No Historical Hx Tetanus, Diptheria, Pertussis No Historical Hx Influenza Vaccination Y 04/04 Historical Hx Tetanus Diptheria No Historical Hx Tetanus, Diptheria, Pertussis No Historical Hx Tetanus Toxoid Vaccination No Historical Vital Signs Acute Vital Signs Vital Response Date/Time Temperature (Fahrenheit) 97.0 deg F (96.8 - 99.1) Temperature (Calculated Celsius) 36.68403 degrees C (36.0 - 37.3) Pulse Rate (adult) 74 bpm (60 - 100) Respiratory Rate 20 breaths/min (10 - 20) O2 Sat by Pulse Oximetry 94 % (90 - 100) Blood Pressure 144/65 mm Hg Height 5 ft 4 in Weight 178 lb Body Mass Index 30.0 kg/m^2 Results Test Source Date Result Interp. Ref. Range Comments Alanine Aminotransferase (ALT/SGPT) May 30, 2014 1:51pm 26 U/L N 9- 52 Albumin May 30, 2014 1:51pm 4.1 G/DL N 3.5-5.0 Albumin/Globulin Ratio May 30, 2014 1:51pm 1.4 RATIO N 1.1-2.2 Alkaline Phosphatase May 30, 2014 1:51pm 45 U/L N 38-126 Anion Gap May 30, 2014 1:51pm 8 MEQ/L N 5-15 Aspartate Amino Transf (AST/SGOT) May 30, 2014 1:51pm 22 U/L N 14- 36 BUN/Creatinine Ratio May 30, 2014 1:51pm 35 RATIO H 6-26 Basophils # (Auto) May 30, 2014 1:51pm 0.1 T/MM3 N 0-0.2 Basophils (%) (Auto) May 30, 2014 1:51pm 0.8 % N 0-2 Blood Urea Nitrogen May 30, 2014 1:51pm 35.0 MG/DL H 7-17 Calcium Level May 30, 2014 1:51pm 10.9 MG/DL H 8.4-10.2 Calculated Osmolality May 30, 2014 1:51pm 285 MOSM/KG H 261-280 Carbon Dioxide Level May 30, 2014 1:51pm 24 MEQ/L N 22-30 Chloride Level May 30, 2014 1:51pm 109 MEQ/L H 98-107 Creatinine May 30, 2014 1:51pm 1.0 MG/DL N 0.7-1.2 Eosinophils # (Auto) May 30, 2014 1:51pm 0.4 T/MM3 N 0-0.5 Eosinophils (%) (Auto) May 30, 2014 1:51pm 4.5 % H 0-4 Globulin May 30, 2014 1:51pm 3.0 G/DL N 2.4-3.6 Glucose Level May 30, 2014 1:51pm 209 MG/DL H 65-110 Hematocrit May 30, 2014 1:51pm 37.2 % N 36-46 Hemoglobin May 30, 2014 1:51pm 11.8 GM/DL L 12-16 Lymphocytes # (Auto) May 30, 2014 1:51pm 1.7 T/MM3 N 1-4.8 Lymphocytes (%) (Auto) May 30, 2014 1:51pm 21.5 % L 23-45 Mean Corpuscular Hemoglobin May 30, 2014 1:51pm 28.9 UUG N 26-34 Mean Corpuscular Hemoglobin Concent May 30, 2014 1:51pm 31.7 GM/DL N 31-37 Mean Corpuscular Volume May 30, 2014 1:51pm 91.0 UM3 N 80-100 Mean Platelet Volume May 30, 2014 1:51pm 11.8 UM3 N 9.4-12.4 Monocytes # (Auto) May 30, 2014 1:51pm 0.6 T/MM3 N 0-0.8 Monocytes (%) (Auto) May 30, 2014 1:51pm 7.9 % N 0-9.0 Neutrophils # (Auto) May 30, 2014 1:51pm 5.2 T/MM3 N 1.8-7.7 Neutrophils (%) (Auto) May 30, 2014 1:51pm 65.2 % N 33-66 Platelet Count May 30, 2014 1:51pm 179 T/MM3 N 130-400 Potassium Level May 30, 2014 1:51pm 4.8 MEQ/L N 3.6-5 Prothromb Time International Ratio June 07, 2013 10:34am 0.96 N 0.86 -1.10 THERAPUTIC RANGE=2.00-3.00 FOR ANTI-THROMBOSIS THERAPUTIC RANGE=2.50- 3.50 FOR IMPLANTED VALVE RDW Standard Deviation May 30, 2014 1:51pm 43.2 FL N 36.9-50.2 Red Blood Count May 30, 2014 1:51pm 4.09 M/MM3 N 4.00-5.20 Sodium Level May 30, 2014 1:51pm 141 MEQ/L N 134-144 Total Bilirubin May 30, 2014 1:51pm 0.30 MG/DL N 0.20-1.30 Total Protein May 30, 2014 1:51pm 7.1 G/DL N 6.3-8.2 Troponin I May 30, 2014 1:51pm < 0.012 ng/ml 0-0.12 Urine Bacteria September 20, 2013 12:00am Trace H - Urine Bilirubin May 30, 2014 2:13pm Negative - Has specimen been collected/obtained? Y Urine Blood May 30, 2014 2:13pm Trace-intact H - Has specimen been collected/obtained? Y Urine Collection Type May 30, 2014 2:13pm Cleancatch-midstream - Has specimen been collected/obtained? Y Urine Color May 30, 2014 2:13pm Yellow - Has specimen been collected/obtained? Y Urine Culture Indicated February 22, 2013 9:50am Cult reflexed &setup - COMMENT DC [place] AFTER UA OBTAINEDHas specimen been collected/obtained? Y Urine Glucose (UA) May 30, 2014 2:13pm Negative - Has specimen been collected/obtained? Y Urine Ketones May 30, 2014 2:13pm Negative - Has specimen been collected/obtained? Y Urine Leukocyte Esterase May 30, 2014 2:13pm Trace H - Has specimen been collected/obtained? Y Urine Nitrite May 30, 2014 2:13pm Negative - Has specimen been collected/obtained? Y Urine Protein May 30, 2014 2:13pm Negative - Has specimen been collected/obtained? Y Urine RBC September 20, 2013 12:00am 0-1 /HPF - Urine Renal Epithelial Cells February 17, 2013 8:35pm 3-5 /HPF - Has specimen been collected/obtained? Y Urine Specific [place] May 30, 2014 2:13pm 1.020 - Has specimen been collected/obtained? Y Urine Squamous Epithelial Cells September 20, 2013 12:00am 5-10 - Urine Turbidity May 30, 2014 2:13pm Sl cloudy - Has specimen been collected/obtained? Y Urine Urobilinogen May 30, 2014 2:13pm 0.2 EU/DL - Has specimen been collected/obtained? Y Urine WBC September 20, 2013 12:00am 3-5 /HPF - Urine WBC Clumps October 23, 2008 12:02am Few - Has specimen been collected/obtained? Y Urine pH May 30, 2014 2:13pm 5.5 - Has specimen been collected/ obtained? Y White Blood Count May 30, 2014 1:51pm 8.0 T/MM3 N 4.5-11.0 Chemistry Specimen Hemolysis May 30, 2014 1:51pm < 15 0-25 0-25 : No Hemolysis.26-70: Slight Hemolysis - can falsely elevate K and Urine Protein. 71-285: Moderate Hemolysis - can falsely elevate K, Troponin I, CA 19-9, PTH, CSF GLucose, and Urine Protein, and can falsely decrease Phenytoin. 286-999: Gross Hemolysis - can falsely elevate K, Troponin I, CA 19-9, PTH, CSF Glucose, and Urine Protine, and can falsely decrease Phenytoin. Recommend specimen recollection. Urinalysis Comment May 30, 2014 2:13pm Microscopic not ind. - Has specimen been collected/obtained? Y Glucometer February 22, 2013 1:55pm 141 mg/dL H 65-110 Lab Scanned Report September 20, 2013 8:40pm LAB TEST FORM REQUEST [id number] - Turbidity May 30, 2014 1:51pm < 20 0-20 Glomerular Filtration Rate Calc May 30, 2014 1:51pm 53 - Immature Granulocyte # (Auto) May 30, 2014 1:51pm 0.01 T/MM3 N 0.00 -0.03 Immature Granulocyte % (Auto) May 30, 2014 1:51pm 0.1 % N 0.0-0.5 Venous Blood Lactate February 17, 2013 9:00pm 1.0 MMOL/L N 0.6-2.2 Procalcitonin February 17, 2013 9:00pm < 0.05 NG/ML - PCT </=0.5 ng/mL - sepsis not likely;PCT >0.5 and </=2 ng/mL - sepsis possible; PCT >2 ng/mL - sepsis likely; PCT >/=10 ng/mL - systemic inflammatory response - sepsis or septic shock highly indicated. Icterus Index May 30, 2014 1:51pm < 2 0-7 OS-Kkz-C-Type Natriuretic Peptide February 19, 2013 4:45am 1360 PG/ML H 0- 175 Rule in cut points: <50 years old=450; 50-75 years old=900; >75 years old=1800; When utilizing ProBNP rule-in cut points, adjustment for impaired renal function is typically not required. Blood Culture Blood February 17, 2013 8:55pm NO GROWTH AFTER 5 DAYS Urine Culture Urine, [place] Indwelling February 22, 2013 10:41am Name: LILIA FARRELL Unit #: [id number] : 1930 Sex: F Loc / Svc: ED DOS: 05/30/14 Signed Report #: [id number] DIAGNOSTIC IMAGING REPORT TYPE OF EXAM: CT LOWER EXTREMITY LT W/O CONT Dictated By: KALEB BONE MD INDICATION: ITS.REASON: severe left hip pain COMPARISON: X-rays 05/30/2014 CT LOWER EXTREMITY LT W/O CONT: Transverse, coronal, sagittal imaging. Evidence of moderate osteoarthritis. Evidence of degenerative changes in the SI joint. No evidence of pelvis or femoral neck fracture. IMPRESSION: No evidence of a fracture. . Procedures No known history of procedures. Encounters Encounter Location Date/Time Departed Emergency Room [facility] 05/30/14 1:13pm Recent Diagnosis
--- OUTSIDE RECORDS SUMMARY | 2016-09-12 19:45 | XMS REPORT | Continuity of Care Document ---
Author Author [facility] Organization [facility] Address Unknown Phone Unavailable Allergies Medications Problems [...] Status Pt. Type Provider Facility Loc./Unit Complaint [id number] 08/25/2012 10:48:00 2012 23:59:59 CLS Outpatient Rox BAXTER, Oniel Flaherty [facility]
--- OUTSIDE RECORDS SUMMARY | 2016-09-12 19:46 | XMS REPORT | Continuity of Care Document ---
Author Author [facility] Organization [facility] Address Unknown Phone Unavailable Support Name Relationship Address Phone AQUILINO FUENTES MD Caregiver [address] [place] [phone] ROBERT ALFREDO MD Caregiver [address] [place] [phone] [employer] Next Of Kin [address] [place], [place] [id number] Insurance Providers Payer Name Policy Number Subscriber Name Relationship Medicare [id number] Lilia Farrell 18 Self [place] [id number] Lilia Farrell 18 Self Advance Directives Directive [...] F (96.8 - 99.1) Temperature (Calculated Celsius) 36.61852 degrees C (36.0 - 37.3) Pulse Rate [...] Has specimen been collected/obtained? Y Urine Specific [place] September 20, 2013 12:00am 1.025 - Urine [...] 20, 2013 8:40pm LAB TEST FORM REQUEST [id number] - Glomerular Filtration Rate Calc June 07, [...] - sepsis or septic shock highly indicated. ZI-Gjc-E-Type Natriuretic Peptide February 19, 2013 4:45am 1360 [...] 2013 10:41am Name: LILIA FARRELL Unit #: [id number] : 1930 Sex: F Loc / Svc: ED DOS: 01/16/14 Signed Report #: [id number] DIAGNOSTIC IMAGING REPORT TYPE OF EXAM: KNEE LEFT 3 VIEWS Dictated By: FANNY MONTIEL MD Indication: ITS.REASON: fall left knee pain Comparison: None Findings: There is no acute fracture, dislocation or malalignment identified. 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 Arterial vascular calcifications. Impression: No acute osseous abnormality. . Procedures No known history of procedures. Encounters Encounter Location Date/Time Departed Emergency Room [facility] 01/16/14 3:37pm Recent Diagnosis
--- OUTSIDE RECORDS SUMMARY | 2016-09-12 19:46 | XMS REPORT | Continuity of Care Document ---
Author Author [facility] Organization [facility] Address Unknown Phone Unavailable Support Name Relationship Address Phone AQUILINO FUENTES MD Caregiver [address] [place] [address] [address] [place] [address] [phone] MARILYN ALAN MD Caregiver [address] [place] [address] [employer] Next Of Kin [address] [place], [place] [phone] Insurance Providers Payer Name Policy Number Subscriber Name Relationship Medicare [id number] Lilia Farrell 18 Self [place] [id number] Lilia Farrell 18 Self Advance Directives Directive [...] Good Jul [address] Ponce at [facility] office Patient Instructions: see discharge instructions Condition [...] F (96.8 - 99.1) Temperature (Calculated Celsius) 36.16522 degrees C (36.0 - 37.3) Temperature Source [...] 20, 2013 8:40pm LAB TEST FORM REQUEST [id number] - Lactate Dehydrogenase July 07, 2014 5:04am [...] 21, 2014 4:55am 6.3 % N 0-9.0 KV-Wmh-B-Type Natriuretic Peptide February 19, 2013 4:45am 1360 [...] Has specimen been collected/obtained? Y Urine Specific [place] June 30, 2014 8:30pm 1.010 L - [...] 2014 8:58pm Name: LILIA FARRELL Unit #: [id number] : 1930 Sex: F Loc / Svc: [facility] DOS: Signed Report #: [id number] DIAGNOSTIC IMAGING REPORT TYPE OF EXAM: CHEST, [...] completed 05/30/14 EMERGENCY DEPT VISIT completed 05/30/14 [id number] ITEM OR SERVICE completed 05/30/14 [id number]"INJECTION, ONDANSETRON HYDROCHLORIDE, PER 1 MG" completed 05/30/14 Encounters Encounter Location Date/Time Discharged Inpatient [facility] 06/29/14 12:20pm Departed Emergency Room [facility] 05/30/14 1:13pm Recent Diagnosis Controlled diabetes mellitus
--- OUTSIDE RECORDS SUMMARY | 2016-09-12 19:46 | XMS REPORT | Continuity of Care Document ---
Author Author [facility] Organization [facility] Address Unknown Phone Unavailable Support Name Relationship Address Phone KAYLEEJACK GARCIA Caregiver [facility] [address] [place] [address] AQUILINO FUENTES MD Caregiver [address] [place] [address] [place] [phone] [employer] Next Of Kin [address] [place] [address] [id number] Insurance Providers Payer Name Policy Number Subscriber Name Relationship Medicare [id number] Lilia Farrell 18 Self [place] [id number] Lilia Farrell 18 Self Advance Directives Directive [...] 21, 2014 4:55am 6.3 % N 0-9.0 TA-Zfg-S-Type Natriuretic Peptide February 19, 2013 4:45am 1360 [...] Has specimen been collected/obtained? Y Urine Specific [place] September 17, 2014 5:25pm 1.010 L - [...] (Group D) Name: LILIA FARRELL Unit #: [id number] : 1930 Sex: F Loc / Svc: [facility] DOS: 08/24/14 Signed Report #: [id number] DIAGNOSTIC IMAGING REPORT TYPE OF EXAM: MODIFIED [facility]. SWALLOW STUDY Dictated By: MAHAD JUARES MD [facility]. SWALLOW STUDY: Videofluoroscopy was performed in conjunction with a retail wireless sales representative from speech pathology and a separate [...] Date/Time Departed Emergency Room [facility] 09/17/14 4:41pm Registered Clinic [facility] 08/24/14 9:20am Discharged Inpatient [facility] 06/29/14 12:20pm Recent Diagnosis
--- OUTSIDE RECORDS SUMMARY | 2016-09-12 19:47 | XMS REPORT | Continuity of Care Document ---
Author Author [facility] Organization [facility] Address Unknown Phone Unavailable Support Name Relationship Address Phone ERICA PAT MD Caregiver [address] [place] [phone] AQUILINO FUENTES MD Caregiver [address] [place] [phone] [employer] Next Of Kin [address] [place], [place] [phone] Insurance Providers Payer Name Policy Number Subscriber Name Relationship Medicare [id number] Lilia Farrell 18 Self [place] [id number] Lilia Farrell 18 Self Advance Directives Directive [...] F (96.8 - 99.1) Temperature (Calculated Celsius) 36.74805 degrees C (36.0 - 37.3) Pulse Rate [...] Has specimen been collected/obtained? Y Urine Specific [place] May 30, 2014 2:13pm 1.020 - Has [...] 20, 2013 8:40pm LAB TEST FORM REQUEST [id number] - Turbidity May 30, 2014 1:51pm < [...] May 30, 2014 1:51pm < 2 0-7 EJ-Eeb-B-Type Natriuretic Peptide February 19, 2013 4:45am 1360 [...] 2013 10:41am Name: LILIA FARRELL Unit #: [id number] : 1930 Sex: F Loc / Svc: ED DOS: 05/30/14 Signed Report #: [id number] DIAGNOSTIC IMAGING REPORT TYPE OF EXAM: CT [...] Encounters Encounter Location Date/Time Departed Emergency Room [facility] 05/30/14 1:13pm Recent Diagnosis
[2016-09-12] MEDS ORDERED: ASPI325T PO (19:53)
[2016-09-12] MEDS ORDERED: SULF1TAB42 PO (19:54)
[2016-09-12] MEDS ORDERED: CIPR-212 PO (19:56)
[2016-09-12] MEDS ORDERED: LORA0.5T2 PO (19:59)
--- NOTE | 2016-09-12 20:08 | ERPDOC ---
Departure Disposition Decision Date: Sep 12, 2016 Disposition Decision Time: 21:24 (SEMAJ MEEHAN N NUT CRACKER) Disposition: 01 DISCHARGED HOME, SELF-CARE Impression Impression (RHONASEMAJ RIDLEY APRN) Impression: Primary Impression: Hyperkalemia Additional Impression: Dehydration Severity: Moderate (SHEFALI,SEMAJ N NUT CRACKER) Condition: Stable Seen By: Mid-level only (SEMAJ MEEHAN NUT CRACKER) Referrals: OSCAR MANE II, MD (Family) Patient Instructions: Hyperkalemia (ED) Problems/Meds/Labs Reviewed?: Yes Medications reviewed and manag: Yes (AMAN MEEHANA N NUT CRACKER) Additional Instructions: We did give IVF in the emergency room today to help with the elevated BUN and creatinine as well as the elevated potassium. Please continue with the Cipro as prescribed. Encourage fluids often at home as well. I would like for her BMP to be redrawn on Thursday if possible. If not then please redraw on Thursday and forward results to Dr Mckeon. If any other issues/concerns then return to ER. Follow up care ordered?: Yes Mental Status: Alert (AMAN MEEHANA N NUT CRACKER) HPI - General Medical General Chief Complaint: Acute Medical Problem Stated Complaint: DELUSIONS,HALLUCINATIONS Time Seen by Provider: 19:39 Source: patient Exam Limitations: no limitations (SEMAJ MEEHAN APRN) Time Seen by Provider: 19:39 (MAGGIE FLETCHER MD) HPI - General Medical Initial Comments She was sent to the ER today from the senior living. Today she has not had much out in urine. She feels like she has been drinking lots of fluids today but not had much out. Upon arrival to ER bladder scan was done and was noted to have 307ml of urine in bladder. She also was thought to be having hallucinations today. Had been talking to her whom is . She is alert and answering questions appropriately upon arrival to ER. Denies feeling ill or any other concerns. Occurred At: home Onset: Gradual Duration: 6-12 hrs Severity: moderate Associated Symptoms: DENIES: chest pain, cough, diaphoresis, fever/chills, headaches, loss of appetite, malaise, nausea/vomiting, rash, seizure, shortness of breath, syncope, weakness Hx of Similar Symptoms: No (NOKEYANA,SEMAJ N NUT CRACKER) Allergies: Coded Allergies: bisacodyl (Verified Allergy, Unknown, 09/12/16) sucralose (Verified Allergy, Unknown, 09/12/16) Past History Patient Surgical History Basal Cell Ca excision Lumbar Spine Fusion Right hand tendon revision Left Shoulder Surgery right Cataract Surgery Breast REduction Surgery Hysterectomy D&C Partial Mastectomy CABG x 3 (NOLD,SEMAJ N NUT CRACKER) Past Medical History Metabolic: diabetes, hypertension Cardiac: CAD GI: GERD Female: UTI, renal insufficiency Neurological: CVA, neuropathy (NOLD,SEMAJ N NUT CRACKER) Surgical History General: back, colonoscopy, other Cardiac: cardiac bypass Reproductive/: hysterectomy (NOLD,SEMAJ N NUT CRACKER) Vaccines Hx Influenza Vaccination: Yes (04/05) Hx Pneumococcal Vaccination: Yes (WITHIN THE LAST 5 YEARS) Hx Tetanus Diptheria: No Hx Tetanus, Diptheria, Pertuss: No (NOLD,SEMAJ N NUT CRACKER) Review of Systems Constitutional Constitutional: DENIES: appetite decrease, chills, dizziness, fatigue, fever, weakness (NOLD,SEMAJ N NUT CRACKER) ENMT Ears: DENIES: drainage, pain Sinuses: DENIES: congestion, rhinorrhea Mouth/Throat: DENIES: painful swallowing, scratchy throat, sore throat (NOLD, SEMAJ N NUT CRACKER) Cardiovascular Cardiac: DENIES: chest pain, orthopnea Rhythm/Rate: DENIES: irregular beat, palpitations (NOLD,SEMAJ N NUT CRACKER) Pulmonary Respiratory: DENIES: cough, dyspnea, sputum, tachypnea (NOLD,SEMAJ N NUT CRACKER) GI Upper Abdomen: DENIES: nausea, pain, vomiting Lower Abdomen: pain, DENIES: constipation, diarrhea (NOLD,SEMAJ N NUT CRACKER) Integumentary Skin: DENIES: rash (NOLD,SEMAJ N NUT CRACKER) Neurological General: DENIES: headache, numbness, tingling, weakness (NOLD,SEMAJ N NUT CRACKER) Physical Exam General General Nourishment: well nourished, well developed, appears stated age, no acute distress, adult General Body Habitus: well groomed (NOLD,SEMAJ N NUT CRACKER) Vitals and Pain First Documented Vital Signs Date Time Temp Pulse Resp B/P Pulse Ox O2 Delivery O2 Flow Rate FiO2 09/12/16 19:40 97.8 67 18 110/51 97 Room Air (MAGGIE FLETCHER MD) Vitals and Pain Weight: Kilograms: 88.300 Height (feet): 5 Height (inches): 4.00 Triage Pain Scale: (SEMAJ MEEHAN APRN) RN VS reviewed by Provider: Yes (SEMAJ MEEHAN APRN) Normal Exams: Neck: Full range of motion, without adenopathy, JVD, bruits or thyromegaly Chest/Resp: Clear all aranda, with good airflow, and symmetry bilaterally CV: Regular rate and rhythm, without murmur or gallop, Pulses 2+ all extremities, capillary refill, <2 seconds all ext., no pedal edema noted Abdomen: Bowel sounds positive, no hepatosplenomegaly, masses or bruits noted Integumentary: No rashes, hives, or bruising noted Neurologic: Patient is alert, and oriented Psychiatric: Patient exhibits, appropriate attention, emotion and affect (SEMAJ MEEHAN APRN) Abdomen (brief) Abdominal Brief: FOUND: soft (SEMAJ MEEHAN APRN) Abdomen Inspection: FOUND: distention Palpation: FOUND: soft, NOT FOUND: involuntary guarding, rebound, tender, voluntary guarding Auscultation: FOUND: hyperactive (SEMAJ MEEHAN APRN) Differential Diagnoses Considering: Hypo/Hyperglycemia, Hypo/Hyperkalemia, Hypo/Hypernatremia, Metabolic, UTI, Other (urinary retention, sepsis) (SEMAJ MEEHAN APRN) Progress Results/Orders Orders Procedure Category Date Status Time Cbc W/Auto LAB 09/12/16 Complete Diff-Reflex Manual Bmp - Basic Metabolic LAB 09/12/16 Complete Panel Iv Lock (Ed Only) EDM 09/12/16 Transmitted 19:50 UA, LAB 09/12/16 Complete Dip&Micro(Complete) & 20:20 Normal Saline (Normal PHA 09/12/16 Complete Saline Iv) 20:45 EKG EKG 09/12/16 Taken Gabapentin (Neurontin) PHA 09/12/16 Complete 21:15 (MAGGIE FLETCHER MD) Lab Results Laboratory Tests Test 09/12/16 19:49 09/12/16 20:07 09/12/16 20:20 Glucometer 163mg/dL White Blood Count 9.8T/MM3 Red Blood Count 4.28M/MM3 Hemoglobin 12.4GM/DL Hematocrit 39.3% Mean Corpuscular Volume 91.8UM3 Mean Corpuscular Hemoglobin 29.0UUG Mean Corpuscular Hemoglobin Concent 31.6GM/DL RDW Standard Deviation 44.3FL Platelet Count 177T/MM3 Mean Platelet Volume 12.9UM3 Immature Granulocyte % (Auto) 0.3% Neutrophils (%) (Auto) 47.6% Lymphocytes (%) (Auto) 38.7% Monocytes (%) (Auto) 8.9% Eosinophils (%) (Auto) 3.8% Basophils (%) (Auto) 0.7% Absolute Immature Granulocyte (auto 0.03T/MM3 Absolute Neutrophils (auto) 4.6T/MM3 Absolute Lymphocytes (auto) 3.8T/MM3 Absolute Monocytes (auto) 0.9T/MM3 Absolute Eosinophils (auto) 0.4T/MM3 Absolute Basophils (auto) 0.1T/MM3 Turbidity < 20 Sodium Level 139MEQ/L Potassium Level 5.8MEQ/L Chloride Level 108MEQ/L Carbon Dioxide Level 20MEQ/L Anion Gap 11MEQ/L Blood Urea Nitrogen 54.0MG/DL Creatinine 2.0MG/DL Glomerular Filtration Rate Calc 24 BUN/Creatinine Ratio 27RATIO Glucose Level 153MG/DL Calculated Osmolality 286MOSM/KG Calcium Level 10.7MG/DL Icterus Index < 2 Chemistry Specimen Hemolysis 16 Urine Collection Type Cleancatch-midstream Urine Color Yellow Urine Turbidity Clear Urine pH 5.0 Urine Specific [place] 1.025 Urine Protein Negative Urine Glucose (UA) Negative Urine Ketones Negative Urine Blood Negative Urine Nitrite Negative Urine Bilirubin Negative Urine Urobilinogen 0.2EU/DL Urine Leukocyte Esterase 1+ Urine RBC None seen/HPF Urine WBC 5-10/HPF Urine Bacteria None seen Urine Culture Indicated Cult not indicated (MAGGIE FLETCHER MD) Medications Current ED Medications Sodium Chloride (Normal Saline IV) 1,000 ml @ 1,000 mls/hr Q1H ONCE IV Last administered on 09/12/16 20:57; Start 09/12/16 at 20:45; Stop 09/12/16 at 21:44 ; Status DC Gabapentin (Neurontin) 300 mg ONE TIME ONCE PO Last administered on 09/12/16 21:32; Start 09/12/16 at 21:15; Stop 09/12/16 at 21:16; Status DC (MAGGIE FLETCHER MD) Progress Progress CBC was normal. UA is clear. BMP does how elevated K+ of 5.8, BUN is 54 and creatinine is 2.0. We did hydrate her today with some IVF in ER. She is normally incontinent of urine at the PR and they had noted that she did not have much UOP over the last 24 hours. Rehydration should help bring down K+ as she does not take K+ supplement. Will see if they can redraw her labs on Thursday and have her push fluids over the weekend. Return to ER with any other concerns. EKG without ST changes and unchanged from 10/2015 EKG on file. (SEMAJ MEEHAN APRN) SEMAJ MEEHAN APRN Sep 12, 2016 20:08 MAGGIE FLETCHER MD Sep 15, 2016 18:31
[2016-09-12 20:13] LABS: BASOPHILS # (AUTO) 0.1 T/MM3 (0-0.2); BASOPHILS % (AUTO) 0.7 % (0-2); EOSINOPHILS # (AUTO) 0.4 T/MM3 (0-0.5); EOSINOPHILS % (AUTO) 3.8 % (0-4); HCT - HEMATOCRIT 39.3 % (36-46); HGB - HEMOGLOBIN 12.4 GM/DL (12-16); IMMATURE GRANULOCYTE # (AUTO) 0.03 T/MM3 (0.00-0.03); IMMATURE GRANULOCYTE % (AUTO) 0.3 % (0.0-0.5); LYMPHOCYTES # (AUTO) 3.8 T/MM3 (1-4.8); LYMPHOCYTES % (AUTO) 38.7 % (23-45); MEAN CORPUSCULAR HGB CONC(MCHC 31.6 GM/DL (31-37); MEAN CORPUSCULAR VOLUME 91.8 UM3 (80-100); MEAN PLATELET VOLUME 12.9 UM3 (9.4-12.4); MONOCYTES # (AUTO) 0.9 T/MM3 (0-0.8); MONOCYTES % (AUTO) 8.9 % (0-9.0); NEUTROPHILS #(AUTO)-ABSOLUTE 4.6 T/MM3 (1.8-7.7); NEUTROPHILS % (AUTO) 47.6 % (33-66); RED BLOOD COUNT 4.28 M/MM3 (4.00-5.20); WBC - WHITE BLOOD COUNT 9.8 T/MM3 (4.5-11.0)
[2016-09-12 20:21] LABS: ANION GAP 11 MEQ/L (5-15); BUN/CREATININE RATIO 27 RATIO (6-26); CALCIUM 10.7 MG/DL (8.4-10.2); CHLORIDE 108 MEQ/L (98-107); CO2 - CARBON DIOXIDE 20 MEQ/L (22-30); GLOMERULAR FILTRATION RATE 24; GLUCOSE 153 MG/DL (65-110); POTASSIUM 5.8 MEQ/L (3.6-5); SODIUM 139 MEQ/L (134-144)
[2016-09-12 20:27] LABS: BLOOD, URINE NEGATIVE (NEGATIVE); COLOR,URINE YELLOW (YELLOW); LEUKOCYTE ESTERASE ,URINE 1+ (NEGATIVE); NITRITE,URINE NEGATIVE (NEGATIVE); UROBILINOGEN,URINE 0.2 EU/DL (NORMAL)
[2016-09-12 20:35] LABS: BACTERIA,URINE NONE SEEN (NEGATIVE); RBC,URINE NONE SEEN /HPF (0-3)
[2016-09-12] MEDS ORDERED: NORMAL SALINE 1,000 ML IV ONE (20:45)
--- NOTE | 2016-09-12 21:08 | NUR ---
REPORT RECEIVED FROM SIMA FOSTER. CARE ASSUMED.
[2016-09-12] MEDS ORDERED: GABAPENTIN 300 MG CAPSULE PO ONE (21:15)
--- NOTE | 2016-09-12 21:32 | NUR ---
MED PT/FAMILY GIVEN INSTRUCTION REGARDING NEURONTIN. UNDERSTANDING VERABALIZED.
[2016-09-12 22:07] VITALS: BP 140/59; PULSE 60; RESP 20; TEMP 97.8; O2SAT 97
--- NOTE | 2016-09-12 22:15 | NUR ---
DEPART PT ASSISTED TO WC. PT TAKEN TO PRIVATE VEHICLE DRIVEN BY FAMILY BY THIS RN.
== END 2016-09-12 22:15 | disposition home or self-care (01) ==
LOC: ED 19:37
DX: E87.5 Hyperkalemia (principal); E86.0 Dehydration
CPT/HCPCS: 51701; 80048; 81001; 82948; 85025; 93005; 96360; 99284; A9270; J7030

== ENCOUNTER 2017-04-03 10:40 | Observation (INO) ==
[2017-04-03] MEDS ORDERED: FLUMAZENIL 0.5mg/5ml INJECTION IVP ONE ×3 (11:12→14:17)
--- NOTE | 2017-04-03 11:20 | Emergency Department Report ---
Overdose HPI - General Chief Complaint: Overdose Stated Complaint: Given wrong medication Time Seen by Provider: 04/03/17 10:47 - History of Present Illness HPI Narrative: 86-year-old female brought in by EMS with accidental Ativan overdose. Patient is at a [facility] and by history was given the wrong medication. She had an apneic episode shortly after administration and became hypotensive. EMS was contacted and transported the patient and. They are abasic rig and carry Narcan but no Romazicon. They did give HER-2 doses of Narcan which did not improve her blood pressure. GCS was 11. No history of fever. She did have a sebaceous cyst removed approximately a week ago and was started on Bactrim. She did have CVA approximately 1 year ago. She is incontinent of urine chronically. She takes no controlled substances at this time. - Related Data Home Medications Medication Instructions Recorded Confirmed Acetaminophen [Tylenol Extra 500 mg PO Q4HPRN PRN #0 09/17/14 04/03/17 Strength] Insulin Aspart [Novolog Flexpen] 8 unit SQ AC #0 09/10/15 04/03/17 Insulin Detemir [Levemir Flextouch] 26 unit SQ HS #0 09/10/15 04/03/17 Lisinopril 10 mg PO HS #0 09/10/15 04/03/17 Aspirin 325 mg PO DAILY #0 09/12/16 04/03/17 LORazepam [Lorazepam] 0.5 mg PO Q4H PRN #0 09/12/16 04/03/17 Celexa (citalopram) 20 mg tablet 20 mg PO DAILY tab 03/20/17 04/03/17 Nitrostat (nitroglycerin) 0.4 mg 0.4 mg SL Q5M PRN 03/20/17 04/03/17 sublingual tablet loperamide 2 mg capsule 4 mg PO BID PRN cap 03/20/17 04/03/17 Gabapentin [Gabapentin] 300 mg PO TID 04/03/17 04/03/17 Hyoscyamine Sulfate [Levsin-Sl] 0.125 mg SL Q4H PRN 04/03/17 04/03/17 Metoprolol Tartrate [Lopressor] 25 mg PO BID 04/03/17 04/03/17 Nystatin 1 applic TOP BID PRN 04/03/17 04/03/17 Sulfamethox/Tmp [Bactrim Ds] 1 tab PO BID 04/03/17 04/03/17 Allergies Allergy/AdvReac Type Severity Reaction Status Date / Time bisacodyl Allergy Unknown Verified 04/03/17 10:50 sucralose Allergy Unknown Verified 04/03/17 10:50 Review of Systems All systems: reviewed and negative except as stated PFSH Patient Stated Medical History Cerebrovascular Accident Yes: x2 Hypertension Yes Myocardial Infarction Yes Diabetes Mellitus Type 2 Yes Hx Incontinence Yes Depression Yes Surgical History: This patient has had previous operations and procedures as follows: 1. Bilateral breast reduction operation at sometime in the 1960s at a plastic surgeon's office across the street from [facility] at [place], [place]. 2. Operation for treatment of hyperparathyroidism at sometime in the late or early by Dr. Pastor at [facility] at [place], [place]. 3. Operation at palm of right hand and at volar surface of right ring finger to repair torn flexor tendon in [place], [place]. 4. Back operation in 2004 at [facility] at [place], [place]. 5. Total colonoscopy with polypectomy on 03/26/[address] Martínez at [facility] at [place], [place]. The patient did have a hyperplastic colon polyp removed at this time. The patient had a redundant colon. There was a lipoma at the ileocecal valve. The patient did have prominent internal and external hemorrhoids. 6. Cardiac catheterization on 10/12/[address] Cohen [address] [facility] at [place], [place]. 7. Coronary artery bypass operation on 13/[address] K[address] Wilkinson at [facility] at [place], [place]. 8. Excision of basal cell skin carcinoma at left side of nose with closure of the excision site with a full-thickness skin graft on 04/16/[address] Martínez at [facility] at [place], [place]. Postoperative diagnosis was basal cell skin carcinoma at left side of nose. 9. Ultrasound guided percutaneous biopsy of left breast mass using a vacuum assisted device on 01/06/[address] Martínez at the [facility]. The pathology report diagnosis on the biopsies did show invasive moderately differentiated ductal carcinoma. 10. Left axillary sentinel lymph node dissection and left partial mastectomy on 01/25/[address] Martínez at [facility] at [place], [place]. The pathology report diagnosis on the left breast tissue specimen was invasive ductal carcinoma. Resection margins were free of tumor. The two left axillary lymph nodes which were submitted for study by the pathologist were both free of any metastases. 11. Excision of basal cell skin carcinoma at left side of forehead with closure of excision site with a V-Y triangular advancement flap (subcutaneous pedicle flap) on 04/01/[address] Martínez at [facility] at [place], [place]. Postoperative diagnosis was basal cell skin carcinoma at left side of forehead. 12. Excision of basal cell skin carcinoma at left side of neck with closure of excision site with full- thickness skin graft on 06/07/[address] Martínez at [facility] at [place], [place]. Postoperative diagnosis was basal cell skin carcinoma at left side of neck. The patient has had other previous hospitalizations as follows: 1. Hospitalized in 2005 at [facility] at [facility] at [place], [place]. The patient states that she was hospitalized for treatment of a cerebrovascular accident at this time. 2. Hospitalized from to 02/22/13 at [facility] at [place], [place]. The main discharge diagnosis for this hospitalization was acute urinary tract infection with systemic inflammatory response syndrome and acute dehydration with acute renal failure. Another discharge diagnosis was probable syncopal episode at home due to acute illness. Another discharge diagnosis was acute generalized weakness. Additional discharge diagnoses were type 2 diabetes on insulin, diabetic neuropathy, chronic gait disorder, hypertension, hyperlipidemia and coronary artery disease. The patient does have other current medical problems as follows : 1. Bilateral hearing loss. 2. Hypertension. 3. Type 2 insulin requiring diabetes mellitus. 4. Osteoarthritis. 5. Hyperlipidemia. 6. Coronary artery disease. 7. Allergic rhinitis. 8. Diabetic neuropathy. 9. Chronic gait disorder. - Social History Smoking status: Never smoker Substance use type: does not use Alcohol intake frequency: does not drink Physical Exam - Limitations Limitations: altered mental status - General General appearance: lethargic - Normal Exams: Eyes:: Pupils are PERRLA w/ EOMI, No scleral icterus, irritation, or foreign bodies noted Chest/Respirations:: Clear all aranda, with good airflow, and symmetry bilaterally Cardiovascular:: Regular rate and rhythm, without murmur or gallop, Pulses 2+ all extremities, capillary refill, <2 seconds all extremities Abdomen:: Bowel sounds positive, soft, non-tender, non-distended, no hepatosplenomegaly, masses or bruits noted - Neurological Exam Neurological exam: Present: other (unable to perform normal neuro exam. Diminished DTRs on left upper extremity and left lower extremity.). Absent: alert, oriented X3 - Psychiatric Psychiatric exam: Present: flat affect Course Vital Signs Temperature 97.9 F 04/03/17 10:50 Pulse Rate 64 04/03/17 10:50 Respiratory Rate 16 04/03/17 10:50 Blood Pressure 104/50 04/03/17 10:50 Pulse Oximetry 94 04/03/17 10:50 Temperature 97.9 F 04/03/17 10:50 Pulse Rate 63 04/03/17 11:20 Respiratory Rate 14 04/03/17 11:20 Blood Pressure 96/52 04/03/17 11:20 Pulse Oximetry 94 04/03/17 11:20 Overdose - MDM Narrative Medical decision making narrative: Patient brought in by EMS, evaluated in the emergency department. Patient was able to initially maintain O2 sats and blood pressure without supplementation of oxygen. IV was started and labs were drawn. CT head was ordered. Shortly after arrival, blood pressure decreased to 80 systolic and patient became very somnolent. She was given Romazicon 0.2 mg IV after discussing with family. Patient had appropriate improvement after Romazicon. CT head is negative, showing no acute stroke. She does have normal labs. Case was discussed with Dr. Ramirez, who is accepting the patient for hospitalist. Patient will be observed overnight to allow the medication to be metabolized. She is currently on Bactrim for treatment of the sebaceous cyst. Creatinine is 1.4. Hospitalist will decide on appropriate antibiotic treatment. - Differential Diagnosis Likely: accidental drug ingestion - Medical Records Attestation: I reviewed the patient's medical records. - Lab Data Attestation: I reviewed the patient's lab results. Result diagrams: 04/03/17 11:18 04/03/17 11:18 Lab Results 04/03/17 04/03/17 04/03/17 Range/Units 11:18 11:18 11:48 WBC 8.7 (4.5-11.0) T/MM3 RBC 4.22 (4.00-5.20) M/MM3 Hgb 11.9 L (12-16) GM/DL Hct 38.5 (36-46) % MCV 91.2 (80-100) UM3 MCH 28.2 (26-34) UUG MCHC 30.9 L (31-37) GM/DL RDW Std Deviation 43.5 (36.9-50.2) FL Plt Count 188 (130-400) T/MM3 MPV 12.3 (9.4-12.4) UM3 Immature Gran % (Auto) 0.3 (0.0-0.5) % Neut % (Auto) 54.9 (33-66) % Lymph % (Auto) 30.9 (23-45) % [place] % (Auto) 8.9 (0-9.0) % Eos % (Auto) 4.3 H (0-4) % Baso % (Auto) 0.7 (0-2) % Neut # (Auto) 4.8 (1.8-7.7) T/MM3 Lymph # (Auto) 2.7 (1-4.8) T/MM3 [place] # (Auto) 0.8 (0-0.8) T/MM3 Eos # (Auto) 0.4 (0-0.5) T/MM3 Baso # (Auto) 0.1 (0-0.2) T/MM3 Abs Immat Gran (auto) 0.03 (0.00-0.03) T/MM3 Turbidity < 20 (0-20) Sodium 143 (134-144) MEQ/L Potassium 5.2 H (3.6-5) MEQ/L Chloride 110 H (98-107) MEQ/L Carbon Dioxide 23 (22-30) MEQ/L Anion Gap 10 (5-15) MEQ/L BUN 30.0 H (7-17) MG/DL Creatinine 1.4 H (0.7-1.2) MG/DL GFR Calculation 36 BUN/Creatinine Ratio 21 (6-26) RATIO Glucose 135 H (65-110) MG/DL Calculated Osmolality 283 H (261-280) MOSM/KG Calcium 9.3 (8.4-10.2) MG/DL Total Bilirubin 0.20 (0.20-1.30) MG/DL Icterus Index < 2 (0-7) AST 16 (14-36) U/L ALT 30 (9-52) U/L Alkaline Phosphatase 71 (38-126) U/L Troponin I < 0.012 (0-0.12) ng/ml Total Protein 6.5 (6.3-8.2) G/DL Albumin 3.4 L (3.5-5.0) G/DL Globulin 3.1 (2.4-3.6) G/DL Albumin/Globulin Ratio 1.1 (1.1-2.2) RATIO Specimen Hemolysis < 15 (0-25) Ur Collection Type Urine, catheter Urine Color Yellow (YELLOW) Urine Clarity Clear Urine pH 6.0 (5.0-8.0) Ur Specific [place] 1.015 (1.015-1.025) Urine Protein Negative (NEGATIVE) Urine Glucose (UA) Negative (NEGATIVE) Urine Ketones Negative (NEGATIVE) Urine Occult Blood 3+ A (NEGATIVE) Urine Nitrate Negative (NEGATIVE) Urine Bilirubin Negative (NEGATIVE) Urine Urobilinogen 0.2 (NORMAL) EU/DL Ur Leukocyte Esterase Trace A (NEGATIVE) Urine RBC 10-20 H (0-3) /HPF Urine WBC 3-5 (0-5) /HPF Ur Squamous Epith Cells 0-5 Urine Bacteria 1+ H (NEGATIVE) Hyaline Casts 1-3 /LPF Ur Culture Indicated? Cult not indicated Salicylates < 1.0 L (2-20) MG/DL Acetaminophen < 10 L (10-30) UG/ML Alcohol, Quantitative <10 (<10) MG/DL - Radiology Data Attestation: I reviewed the patient's radiology results. Disposition Clinical Impression: Accidental drug ingestion Disposition: 02 To [facility] – [place], [place] Acute Care Condition: Improved Time of Disposition: 12:53 - Seen By: physician
[2017-04-03] MEDS ORDERED: NS 1,000 ML IV SCH ×2 (11:30→15:15)
--- NOTE | 2017-04-03 11:43 | XRay Report ---
Indication: ms changes PROCEDURE: XR chest 1V: Encounter: Initial Comparison: October 29, 2015 Findings: Patient is rotated towards the right. No focal pneumonia, pleural effusion or pneumothorax. Cardiac silhouette remains mildly enlarged. Prior study sternotomy changes with surgical clips in the neck and superior mediastinum. Pulmonary vascularity is normal. Impression: No focal pneumonia or congestive failure. .
--- NOTE | 2017-04-03 12:19 | CT Scan Report ---
Indication: ms changes PROCEDURE: CT head/brain wo con: Encounter: Initial Comparison: February 03, 2016 Technique: Axial CT images through the head were performed without contrast. Iterative Reconstruction dose reducing technique was utilized. FINDINGS: Old right MCA stroke with encephalomalacia. Moderate atrophy. The ventricles are unchanged. There are scattered areas of low attenuation in the white matter which most likely represent changes from chronic microvascular ischemia. The brainstem, cerebellum, and cerebral hemispheres otherwise have a normal morphology and CT attenuation. There is no evidence of midline displacement. No hemorrhage, signs of acute territorial stroke, mass effect, mass lesions, or edema is evident. The visualized portions of the skull base, midface, and calvarium demonstrate no abnormality. Mild sinus disease. The tympanic and mastoid cavities appear normal. IMPRESSION: No acute intracranial abnormality or hemorrhage. Stable head CT. .
--- NOTE | 2017-04-03 14:17 | History & Physical Report ---
<Yasmeen Veliz - Last Filed: 04/03/17 16:09> History of Present Illness Date: 04/03/17 Chief complaint: given wrong medication at nursing facility HPI: Patient is brought in by EMS from [facility] because she was given another resident's medicines this morning along with her own medicines. Nursing staff at [facility] reports she was given her medicines and the another resident's medicines.They report she became apneic shortly after taking the medications and became hypotensive. En route, EMS gave her 2 doses of Narcan which did not improve her blood pressure. Her GCS was 11. In the emergency room she was given 0.2 mg of IV Romazicon at 1106. Her daughter reports that following administration of this, she woke up enough to ask where she was and asked if she was going to . She was given another dose at 1311. When I saw her at approximate 1400, she was unresponsive. She would not rouse to her name or gentle shaking. Phone call was placed to the nursing facility to confirm medications which were administered. She was given Neurontin 300 mg, aspirin 325, NovoLog 8 units, Celexa, metoprolol 25 mg, and Bactrim DS. These were her medications. The medications she was given which are not her medications were Colace 100 mg, metformin 1000 milligrams, Januvia 100 mg, tramadol 50 mg, Vasotec 5 mg, Ativan 1 mg, and gabapentin 100 mg. These medications were administered at 8:30 this morning. At 9:30 her blood sugar was 263. At 955, EMS recorded a blood sugar of 153. Upon arrival to the emergency room her blood sugar with venipuncture was found to be 135. In the ER, her CBC is essentially negative other than a hemoglobin of 11.9. Potassium is 5.2. Creatinine 1.4. Troponin was negative. Tox screen positive for benzodiazepines. CT head negative. Chest x-ray was also negative. In discussion with her daughter, patient was in her normal state of health. States she visited her yesterday and she was walking with her walker and eating normally. She does have memory deficits and typically does not know what day it is. She is able to recognize family members. Review of Systems ROS unobtainable: due to mental status PFSH Medical History Coronary Artery Disease Type 2 DM, on insulin HTN Depression/Anxiety Diabetic neuropathy, Hyperlipidemia Surgical History: This patient has had previous operations and procedures as follows: 1. Bilateral breast reduction operation at sometime in the 1960s at a plastic surgeon's office across the street from [facility] at [place], [place]. 2. Operation for treatment of hyperparathyroidism at sometime in the late 1970s or early by Dr. Pastor at [facility] at [place], [place]. 3. Operation at palm of right hand and at volar surface of right ring finger to repair torn flexor tendon in [place], [place]. 4. Back operation in 2004 at [facility] at [place], [place]. 5. Total colonoscopy with polypectomy on 03/26/[address] Martínez at [facility] at [place], [place]. The patient did have a hyperplastic colon polyp removed at this time. The patient had a redundant colon. There was a lipoma at the ileocecal valve. The patient did have prominent internal and external hemorrhoids. 6. Cardiac catheterization on 10/12/[address] Cohen at [facility] at [place], [place]. 7. Coronary artery bypass operation on 13/[address] Kaleb Wilkinson at [facility] at [place], [place]. 8. Excision of basal cell skin carcinoma at left side of nose with closure of the excision site with a full-thickness skin graft on 04/16/[address] Martínez at [facility] at [place], [place]. Postoperative diagnosis was basal cell skin carcinoma at left side of nose. 9. Ultrasound guided percutaneous biopsy of left breast mass using a vacuum assisted device on 01/06/[address] [facility] at [facility]. The pathology report diagnosis on the biopsies did show invasive moderately differentiated ductal carcinoma. 10. Left axillary sentinel lymph node dissection and left partial mastectomy on 01/25/[address] Martínez at [facility] at [place], [place]. The pathology report diagnosis on the left breast tissue specimen was invasive ductal carcinoma. Resection margins were free of tumor. The two left axillary lymph nodes which were submitted for study by the pathologist were both free of any metastases. 11. Excision of basal cell skin carcinoma at left side of forehead with closure of excision site with a V-Y triangular advancement flap (subcutaneous pedicle flap) on 04/01/[address] Martínez at [facility] at [place], [place]. Postoperative diagnosis was basal cell skin carcinoma at left side of forehead. 12. Excision of basal cell skin carcinoma at left side of neck with closure of excision site with full- thickness skin graft on 06/07/[address] Martínez at [facility] [place] at [place], [place]. Postoperative diagnosis was basal cell skin carcinoma at left side of neck. The patient has had other previous hospitalizations as follows: 1. Hospitalized in 2005 at [facility] at [facility] at [place], [place]. The patient states that she was hospitalized for treatment of a cerebrovascular accident at this time. 2. Hospitalized from to 02/22/13 at [facility] [place] at [place], [place]. The main discharge diagnosis for this hospitalization was acute urinary tract infection with systemic inflammatory response syndrome and acute dehydration with acute renal failure. Family History: unable to obtain due to pt's mental status - Social History Smoking status: Never smoker Alcohol intake frequency: does not drink Housing: assisted living facility Current occupational status: retired Social history: PCP - Dr. Mike Singh is patient's DPOA-H (and daughter). She can be reached at [phone]. She would like to be notified of any change in status and given notice of patient's dismissal. Medications Home Medications Medication Instructions Recorded Confirmed Type Acetaminophen [Tylenol Extra 500 mg PO Q4HPRN PRN #0 09/17/14 04/03/17 History Strength] Insulin Aspart [Novolog Flexpen] 8 unit SQ AC #0 09/10/15 04/03/17 History Insulin Detemir [Levemir Flextouch] 26 unit SQ HS #0 09/10/15 04/03/17 History Lisinopril 10 mg PO HS #0 09/10/15 04/03/17 History Aspirin 325 mg PO DAILY #0 09/12/16 04/03/17 History LORazepam [Lorazepam] 0.5 mg PO Q4H PRN #0 09/12/16 04/03/17 History Celexa (citalopram) 20 mg tablet 20 mg PO DAILY tab 03/20/17 04/03/17 History Nitrostat (nitroglycerin) 0.4 mg 0.4 mg SL Q5M PRN 03/20/17 04/03/17 History sublingual tablet loperamide 2 mg capsule 4 mg PO BID PRN cap 03/20/17 04/03/17 History Gabapentin [Gabapentin] 300 mg PO TID 04/03/17 04/03/17 History Hyoscyamine Sulfate [Levsin-Sl] 0.125 mg SL Q4H PRN 04/03/17 04/03/17 History Metoprolol Tartrate [Lopressor] 25 mg PO BID 04/03/17 04/03/17 History Nystatin 1 applic TOP BID PRN 04/03/17 04/03/17 History Sulfamethox/Tmp [Bactrim Ds] 1 tab PO BID 04/03/17 04/03/17 History Allergies Allergy/AdvReac Type Severity Reaction Status Date / Time bisacodyl Allergy Unknown Verified 04/03/17 10:50 sucralose Allergy Unknown Verified 04/03/17 10:50 Exam Vital Signs: Temperature 95.6 F L 04/03/17 13:52 Pulse Rate 59 L 04/03/17 13:52 Respiratory Rate 14 04/03/17 13:52 Blood Pressure 85/34 04/03/17 13:59 Pulse Oximetry 96 04/03/17 13:52 - Constitutional Present: no acute distress, well nourished, well developed, obtunded - Routine HEENT Exam Head: Present: normocephalic, atraumatic - Routine Neck Exam Present: supple. Absent: thyromegaly - Routine Respiratory Exam Present: CTA bilaterally. Absent: wheezes - Routine Cardiovascular Exam Present: RRR, S1, S2, murmur (Grade 2) - Routine Abdominal Exam Present: soft, normoactive bowel sounds, non distended. Absent: tenderness - Routine Extremities Exam Present: no edema, normal capillary refill - Routine Skin Exam Present: dry, warm - Routine Neurological Exam Present: altered mental status (unresponsive). Absent: alert, oriented X3 - Routine Psychiatric Exam Present: unable to assess Results - Labs CBC & Chem 7: 04/03/17 11:18 04/03/17 11:18 Labs: Laboratory Tests 04/03/17 11:48 Urine pH 6.0 Ur Specific [place] 1.015 Urine Protein Negative Urine Glucose (UA) Negative Urine Ketones Negative Urine Occult Blood 3+ A Urine Nitrate Negative Urine Urobilinogen 0.2 Ur Leukocyte Esterase Trace A Urine RBC 10-20 H Urine WBC 3-5 Laboratory Tests 04/03/17 11:18 Troponin I < 0.012 - ABG Interpretation ABG results: Laboratory Tests 04/03/17 14:24 ABG pH 7.301 L ABG pCO2 41 ABG pO2 85 ABG HCO3 20 L - Imaging and Cardiology Chest x-ray Additional comments: Impression: No focal pneumonia or congestive failure. CT scan - head Additional comments: IMPRESSION: No acute intracranial abnormality or hemorrhage. Stable head CT. Assessment and Plan (1) Accidental drug ingestion Current visit: Yes Status: Acute (2) Encephalopathy acute Current visit: Yes Status: Acute Assessment and Plan: Assessment: Iatrogenic encephalopathy Accidental medication administration Hypotension Hyperkalemia JENNIFER Type 2 diabetes, on insulin Coronary artery disease HTN CVA-2013 Dementia Depression/anxiety Plan: Admit to observation under the hospitalist service. Patient would ideally be observed in CCU, but there are no open beds. This is discussed with family. Daughter requested patient remain here as opposed to transfer to another facility. Pt placed in room with direct line of site of nurses station. Telemetry. Frequent vitals. Oxygen if needed. IVF's were bolused in the ER. Will continue IVS at 50 cc per hour (following completion of bolus) for hydration, hypotension, and acute kidney injury. It is noted that her baseline creatinine was 0.7 in November. Monitor blood sugars closely given the drop in blood sugars she's had since medication administration. Accucheck q 1 hour until 2200 then ac/hs if stable. CBC, CMP in a.m. to follow blood counts, potassium levels, renal and liver function. Hold all routine meds for now. When she is able to eat, she will need thickened liquids and ground meat diet. SCDs for DVT prophylaxis. Poison control was contacted. No recommendations were made beyond monitoring blood sugars and blood pressures. Patient is DO NOT RESUSCITATE. Julia Singh is patient's DPOA-H (and daughter) . She can be reached at [phone]. She would like to be notified of any change in status and given notice of patient's dismissal. Hospital Course Summary Disclaimer: The visit summary below is not to be considered part of the above Progress Note. Hospital Course: Assessment: Iatrogenic encephalopathy Accidental medication administration Hypotension Hyperkalemia JENNIFER Type 2 diabetes, on insulin Coronary artery disease HTN CVA-2013 Dementia Depression/anxiety 04/03/17-hospital admission for observation Admit to observation under the hospitalist service. Patient would ideally be observed in CCU, but there are no open beds. This is discussed with family. Daughter requested patient remain here as opposed to transfer to another facility. Pt placed in room with direct line of site of nurses station. Telemetry. Frequent vitals. Oxygen if needed. IVF's were bolused in the ER. Will continue IVS at 50 cc per hour (following completion of bolus) for hydration, hypotension, and acute kidney injury. It is noted that her baseline creatinine was 0.7 in November. Monitor blood sugars closely given the drop in blood sugars she's had since medication administration. Accucheck q 1 hour until 2200 then ac/hs if stable. CBC, CMP in a.m. to follow blood counts, potassium levels, renal and liver function. Hold all routine meds for now. When she is able to eat, she will need thickened liquids and ground meat diet. SCDs for DVT prophylaxis. Poison control was contacted. No recommendations were made beyond monitoring blood sugars and blood pressures. Patient is DO NOT RESUSCITATE. Julia Singh is patient's DPOA-H (and daughter) . She can be reached at [phone]. She would like to be notified of any change in status and given notice of patient's dismissal. <Domitila Ramirez - Last Filed: 04/03/17 21:19> History of Present Illness Date: 04/03/17 Exam Vital Signs: Temperature 96.2 F L 04/03/17 14:41 Pulse Rate 55 L 04/03/17 18:41 Respiratory Rate 14 04/03/17 18:41 Blood Pressure 95/44 04/03/17 18:41 Pulse Oximetry 96 04/03/17 18:41 Height/Weight/BMI: Height 1.6 m Weight 88 kg Body Mass Index 34.3 Results - Labs CBC & Chem 7: 04/03/17 11:18 04/03/17 11:18 - ABG Interpretation ABG results: 04/03/17 14:24 ABG pH 7.301 L ABG pCO2 41 ABG pO2 85 ABG HCO3 20 L ABG Total CO2 22 L ABG O2 Saturation 95.0 ABG Base Excess -6.0 L Assessment and Plan (1) Accidental drug ingestion Current visit: Yes Status: Acute (2) Encephalopathy acute Current visit: Yes Status: Acute Resuscitation Status: Do Not Resuscitate Assessment and Plan: I have independently evaluated and examined this patient. I reviewed the chart, the patient's history, and the DIRECTOR VISUAL/PA's documented findings as above. We discussed and formulated the assessment and plan as above with additions as below: Mrs. Benavides was transferred to the emergency room after accidental administration of multiple medications as described above. Brief apnea was described. Her daughter reported transient improvement with Romazicon in the emergency room but overall the patient remains unresponsive with borderline blood pressures on arrival. Oxygenation is adequate and blood sugars remained stable. Patient is reported to be hard of hearing. Julia describes decreased use of her right arm and left arm rigidity following CVA. Patient is unresponsive to voice but will respond to pinch in the right hand- opening her eyes and withdrawing her arm and to tickle in the lower extremities which stimulate withdrawal of the legs. Less response is obtained with pinch in the left upper extremity. Interestingly sternal rub elicits minimal response. Pupils react to light and are symmetric. Respirations are shallow but breath sounds clear. Cardiac rhythm regular and abdomen benign. Blood gas unremarkable; blood pressure stabilized following fluid bolus-fluids continued. Rate of fluids increased to 125 mL per hour and will add D5 to NS if there is a trend to lower blood sugars noted. My primary concern is development of hypoglycemia given multiple medications given this morning. Unclear why mental status is as significantly depressed at present following 1 mg of lorazepam and 50 mg of tramadol. Received several doses of Romazicon without relief and since hemodynamically stable and oxygenating adequately additional doses have not been given. Continue supportive care. At this time I do not believe pressors will be needed. BiPAP discussed with patient's daughter who is agreeable to use if needed. Head CT/chest x-ray reviewed by myself-results as noted above. EKG with some J- point elevation inferiorly-check troponin. Discussed with Dr. Gaitan. Hospital Course Summary Disclaimer: The visit summary below is not to be considered part of the above Progress Note.
[2017-04-03 15:08] VITALS: BMI 34.3
[2017-04-03] MEDS: D5NS 1,000 ML IV SCH (22:47)
[2017-04-04] MEDS ORDERED: ACETAMINOPHEN 325 MG TABLET PO ONE (12:04)
--- NOTE | 2017-04-04 12:20 | Discharge Summary ---
<Kadi Nation - Last Filed: 04/04/17 12:30> Discharge Information Date of admission: 04/03/17 12:45 Anticipated date of discharge: 04/04/17 Attending Physician: Domitila Ramirez MD Primary care physician: Kitty Mckeon MD Consults: - Discharge Diagnosis (1) Accidental drug ingestion Status: Acute (2) Encephalopathy acute Status: Resolved - Laboratory Labs: 04/04/17 04:48 04/04/17 04:48 - Radiology Radiology: CT head/brain without contrast: FINDINGS: Old right MCA stroke with encephalomalacia. Moderate atrophy. The ventricles are unchanged. There are scattered areas of low attenuation in the white matter which most likely represent changes from chronic microvascular ischemia. The brainstem, cerebellum, and cerebral hemispheres otherwise have a normal morphology and CT attenuation. There is no evidence of midline displacement. No hemorrhage, signs of acute territorial stroke, mass effect, mass lesions, or edema is evident. The visualized portions of the skull base, midface, and calvarium demonstrate no abnormality. Mild sinus disease. The tympanic and mastoid cavities appear normal. IMPRESSION: No acute intracranial abnormality or hemorrhage. Stable head CT. XR chest 1V: Cardiac silhouette remains mildly enlarged. Prior study sternotomy changes with surgical clips in the neck and superior mediastinum. Pulmonary vascularity is normal. Impression: No focal pneumonia or congestive failure. History of Present Illness HPI: Patient is brought in by EMS from [facility] because she was given another resident's medicines this morning along with her own medicines. Nursing staff at [facility] reports she was given her medicines and the another resident's medicines.They report she became apneic shortly after taking the medications and became hypotensive. En route, EMS gave her 2 doses of Narcan which did not improve her blood pressure. Her GCS was 11. In the emergency room she was given 0.2 mg of IV Romazicon at 1106. Her daughter reports that following administration of this, she woke up enough to ask where she was and asked if she was going to . She was given another dose at 1311. When I saw her at approximately 1400, she was unresponsive. She would not rouse to her name or gentle shaking. Phone call was placed to the nursing facility to confirm medications which were administered. She was given Neurontin 300 mg, aspirin 325, NovoLog 8 units, Celexa, metoprolol 25 mg, and Bactrim DS. These were her medications. The medications she was given which are not her medications were Colace 100 mg, metformin 1000 mg, Januvia 100 mg, tramadol 50 mg, Vasotec 5 mg, Ativan 1 mg, and gabapentin 100 mg. These medications were administered at 8:30 this morning. At 9:30 her blood sugar was 263. At 955, EMS recorded a blood sugar of 153. Upon arrival to the emergency room her blood sugar with venipuncture was found to be 135. In the ER, her CBC is essentially negative other than a hemoglobin of 11.9. Potassium is 5.2. Creatinine 1.4. Troponin was negative. Tox screen positive for benzodiazepines. CT head negative. Chest x-ray was also negative. In discussion with her daughter, patient was in her normal state of health. States she visited her yesterday and she was walking with her walker and eating normally. She does have memory deficits and typically does not know what day it is. She is able to recognize family members. Objective Vital signs: Temperature 96.2 F L 04/03/17 14:41 Pulse Rate 61 04/04/17 04:08 Respiratory Rate 14 04/03/17 18:41 Blood Pressure 123/52 04/04/17 04:08 Pulse Oximetry 98 04/04/17 04:08 Height/Weight/BMI: Height 1.6 m Weight 88 kg Body Mass Index 34.3 - Constitutional Present: no acute distress, well nourished, well developed, obese - Routine HEENT Exam Head: Present: normocephalic Eye: Present: PERRL. Absent: conjunctival icterus ENT: Present: oropharynx clear Comments: dressing to left anterior neck - no drainage - Routine Respiratory Exam Present: CTA bilaterally - Routine Cardiovascular Exam Present: RRR, S1, S2 - Routine Abdominal Exam Present: soft, normoactive bowel sounds, non tender - Routine Extremities Exam Present: no edema, pulses intact - Routine Skin Exam Present: intact, dry, warm - Routine Neurological Exam Present: alert, oriented X3 (at baseline) - Routine Psychiatric Exam Present: normal affect, cooperative Hospital Course This is a general summary of the patient's hospital course. For more details refer to the complete medical record. Hospital course: Assessment: Iatrogenic encephalopathy Accidental medication administration Hypotension - resolved Hyperkalemia - mild & stable JENNIFER - resolved Type 2 diabetes, on insulin Coronary artery disease HTN CVA-2013 Dementia Depression/anxiety Hospital admission for observation Mrs. Benavides was admitted on 04/03/17 after accidental medication ingestion including Colace 100 mg, metformin 1000 mg, Januvia 100 mg, tramadol 50 mg, Vasotec 5 mg, Ativan 1 mg, and gabapentin 100 mg. She received Narcan x2 prior to arrival without effect. She was given Romazicon and IVF bolus in the ED secondary to hypotension, and her BP steadily climbed. BGM remained stable and she was never hypoglycemic. She was minimally responsive on admission. IVF were continued overnight for BP support. By the following morning, her daughter reported that she was back to baseline. Her BP had stabilized. BGM was also stable. Her creatinine decreased from 1.4 to 1.0 following fluids. On day of discharge, she was complaining of b/l knee pain, but was A&O to baseline and clinically stable. She still had mildly elevated K at 5.2. Will recheck BMP on 04/06/17 since she's on Bactrim and had both elevated creatinine and K. OK to resume home medications. F/U with PCP in 1 week. She was discharged back to her facility in stable condition. Time spent with patient: discharge greater than 30 minutes Discharge Plan - Med Rec/Dispo Referrals/Follow Up: Kitty Mckeon MD [Family Provider] - 1 Week (elevated creatinine and K - on Bactrim) [place] Instructions: Encephalopathy (DC) Prescriptions: Continue Lisinopril 10 mg PO HS #0 Aspirin 325 mg PO DAILY #0 LORazepam [Lorazepam] 0.5 mg PO Q4H PRN #0 PRN Reason: ANXIETY Hyoscyamine Sulfate [Levsin-Sl] 0.125 mg SL Q4H PRN PRN Reason: Prn Orders Nystatin 1 applic TOP BID PRN PRN Reason: Prn Orders Metoprolol Tartrate [Lopressor] 25 mg PO BID Gabapentin 300 mg PO TID Sulfamethox/Tmp [Bactrim Ds] 1 tab PO BID #0 Acetaminophen [Tylenol Extra Strength] 500 mg PO Q4HPRN PRN #0 PRN Reason: PAIN Insulin Detemir [Levemir Flextouch] 26 unit SQ HS #0 Insulin Aspart [Novolog Flexpen] 8 unit SQ AC #0 Nitrostat (nitroglycerin) 0.4 mg sublingual tablet 0.4 mg SL Q5M PRN PRN Reason: Chest Pain loperamide 2 mg capsule 4 mg PO BID PRN cap PRN Reason: loose stool Celexa (citalopram) 20 mg tablet 20 mg PO DAILY tab - Disposition 04 To [facility] Home/Facility <Domitila Ramirez - Last Filed: 04/04/17 15:36> Discharge Information Date of admission: 04/03/17 12:45 Primary care physician: - Discharge Diagnosis (1) Accidental drug ingestion Status: Acute (2) Encephalopathy acute Status: Resolved - Laboratory Labs: 04/04/17 04:48 04/04/17 04:48 Objective Vital signs: Temperature 97.9 F 04/04/17 08:00 Pulse Rate 74 04/04/17 08:00 Respiratory Rate 18 04/04/17 08:00 Blood Pressure 115/57 04/04/17 08:00 Pulse Oximetry 94 04/04/17 08:00 Height/Weight/BMI: Height 1.6 m Weight 90.2 kg Body Mass Index 34.3 Hospital Course This is a general summary of the patient's hospital course. For more details refer to the complete medical record. Hospital course: I have independently evaluated and examined this patient. I reviewed the chart, the patient's history, and the EMERGENCY SERVICES DISPATCHER/PA's documented findings as above. We discussed and formulated the assessment and plan as above with additions as below: Mrs. Benavides is significantly improved today and able to relay the conversation she had her daughter earlier in the day when I saw her. She doesn't recall why she is in the hospital but was pleased that she is able to return home today. She denied difficulty breathing or pain. She had some difficulty eating breakfast with head of bed elevated 75 but did better with several pillows for propped behind her back so she was fully upright. Decreased movement left arm (chronic by daughter's report), moving right upper well. Responds to questions slowly but appropriately. Respirations nonlabored. Blood sugars stable overnight, blood pressure has also stabilized. Discussed with patient's daughter-stable to return to usual facility on normal medications.
[2017-04-04 12:33] VITALS: BP 115/57; PULSE 74; RESP 18; TEMP 97.9; O2SAT 94
--- NOTE | 2017-04-04 12:54 | Extended Care Facility Orders ---
Admission Orders Admit to:: [facility] Allergies/Adverse Reactions: Allergies bisacodyl Allergy (Unknown, Verified 04/03/17 10:50) sucralose Allergy (Unknown, Verified 04/03/17 10:50) Admitting Diagnosis: Medication Exposure Admitting Physician: Domitila Ramirez MD Attending Physician: Domitila Ramirez MD Code Status: Do Not Resuscitate Anticiapted Length of Stay: 30 days or less Rehab Potential: fair Rehab Prognosis: fair Diet: Consistent Carbohydrate Diet [DIET] Calorie Level: 2000 Fluid Consistency: SYRUP/NECTAR Food Consistency: GROUND MEAT May use Facility Protocol or Standing Orders: Yes May have flu vaccine: Yes Alf Certification: I certify that SNF services are required to be given on an Inpatient basis because of the patient's need for fpc care on a continuing basis for the condition(s) for which she received inpatient hospital services prior to her transfer to the SNF. SNF inpatient care is necessary for the following reasons Indication for Alf: Not Applicable - Additional Information In Event of Arrest: Do Not Start CPR Resident is Aware of Diagnosis: No (limited by dementia; daughter/DPOA is aware. ) Laboratory/Radiology: BMP (E87.5, N17.9) on 04/06/[address] results [address] Mckeon Referrals: Kitty Mckeon MD [Family Provider] - 1 Week (elevated creatinine and K - on Bactrim)
[2017-04-04] MEDS: D5NS 1,000 ML IV SCH (13:02)
== END 2017-04-04 15:00 | disposition home or self-care (01) ==
LOC: ED 10:40 → MED 10:40
PROVIDERS: ADMIT Internal Medicine; ATTEND Internal Medicine